=== PATIENT | female | born 1990 | race African-American/Black ===

== ENCOUNTER 2017-12-08 08:40 | Emergency (ER) | payer MEDICAID ==
[~2017-12-08] VITALS: Ht 170.2 cm; Wt 115.0 kg
[~2017-12-08 08:40] MED LIST: INSULIN
[2017-12-08] MEDS ORDERED: METOCLOPRAMIDE HCL 10MG/2ML VIAL IV STA (08:52)
[2017-12-08] MEDS ORDERED: ONDANSETRON HCL 4MG/2ML INJ IV STA (08:52)
[2017-12-08] MEDS ORDERED: SODIUM CHLORIDE 0.9% 1,000 ML IV ONE (08:52)
[2017-12-08] MEDS ORDERED: FAMOTIDINE 20MG/2ML VIAL IV STA (08:52)
[2017-12-08] MEDS ORDERED: MORPHINE SULFATE 4 MG/ML CPJ (NOT FOR IM USE) IV STA (08:52)
[2017-12-08 09:21] LABS: BASOPHILS % 0.3 % (0.0-2.0); EOSINOPHILS % 0.2 % (0.0-5.0); HEMATOCRIT. 45.2 % (36.0-48.0); HEMOGLOBIN. 15.1 g/dL (12.0-16.0); LYMPHOCYTES % 21.5 % (20.0-50.0); MEAN CORPUSCULAR HEMOGLOBIN 25.3 pg (28.0-32.0); MEAN CORPUSCULAR VOLUME 75.7 fL (81.0-99.0); MEAN PLATELET VOLUME 9.9 fl (7.4-10.4); MONOCYTES % 10.1 % (2.0-8.0); NEUTROPHILS % 67.9 % (40.0-76.0); PLATELET 330 x1000/uL (130-400); RED BLOOD CELL COUNT 5.98 mill/uL (4.2-5.4); RED CELL DISTRIBUTION WIDTH 14.5 % (11.6-14.6)
[2017-12-08 09:30] LABS: CHLORIDE 89 mEq/L (98-107)
[2017-12-08 09:36] LABS: INR 1.1; PROTHROMBIN TIME 10.7 sec (9.1-11.1)
[2017-12-08 09:55] LABS: ETHANOL BLOOD < 10 mg/dL
[2017-12-08 10:25] LABS: CLARITY URINE CLOUDY (CLEAR); COLOR URINE YELLOW (YELLOW); KETONES URINE 3+ (NEGATIVE); LEUKOCYTE ESTERASE URINE NEGATIVE (NEGATIVE); NITRITE URINE NEGATIVE (NEGATIVE); OCCULT BLOOD URINE TRACE (NEGATIVE); PROTEIN URINE 3+ (NEGATIVE); SPECIFIC GRAVITY URINE 1.037 (1.005-1.030); UROBILINOGEN URINE 0.2 E.U./dL (0.2-1.0)
[2017-12-08 11:03] LABS: *AMPHETAMINES SCREEN URINE NEGATIVE (NEGATIVE); *BARBITURATES SCREEN URINE NEGATIVE (NEGATIVE); *BENZODIAZEPINES SCREEN URINE NEGATIVE (NEGATIVE); *COCAINE SCREEN URINE NEGATIVE (NEGATIVE); METHADONE URINE SCREEN NEGATIVE (NEGATIVE); OPIATES URINE SCREEN NEGATIVE (NEGATIVE); PHENCYCLIDINE URINE SCREEN NEGATIVE (NEGATIVE)
[2017-12-08 11:25] LABS: CANNABINOID URINE SCREEN PRESUMTIVE POSITIVE (NEGATIVE)
[2017-12-08] MEDS ORDERED: IOHEXOL-300 100 ML BOTTLE ONE (11:40)
[2017-12-08 12:09] VITALS: BP 153/117
[2017-12-08] MEDS ORDERED: CLONIDINE 0.2MG TABLET PO ONE (12:15)
== END 2017-12-08 12:31 | disposition home or self-care (01) ==
LOC: ER 08:56
DX: K31.84 Gastroparesis (principal); J45.909 Unspecified asthma, uncomplicated; E11.9 Type 2 diabetes mellitus without complications; I10 Essential (primary) hypertension
CPT/HCPCS: 36415; 71045; 74177; 76705; 80053; 80305; 81003; 81025; 83690; 83880; 84484; 85025; 85610; 93005; 96361; 96374; 96375; 99285; G0482; J2270; J2405; J2765; J3490; J7030; Q9967

== ENCOUNTER 2017-12-26 17:04 | Inpatient (IN) | payer MEDICAID ==
[~2017-12-26] VITALS: Ht 167.6 cm; Wt 108.5 kg
[2017-12-26] MEDS ORDERED: ASPIRIN 81MG TABLET PO ONE (18:00)
[2017-12-26] MEDS ORDERED: NITROGLYCERIN 0.4MG TABLET SL SL PRN ×2 (18:00→20:30)
[2017-12-26 19:06] LABS: BASOPHILS % 0.7 % (0.0-2.0); EOSINOPHILS % 0.2 % (0.0-5.0); HEMATOCRIT. 41.6 % (36.0-48.0); MEAN CORPUSCULAR HEMOGLOBIN 25.6 pg (28.0-32.0); MEAN PLATELET VOLUME 9.7 fl (7.4-10.4); MONOCYTES % 10.4 % (2.0-8.0); NEUTROPHILS % 69.7 % (40.0-76.0); PLATELET 276 x1000/uL (130-400); RED BLOOD CELL COUNT 5.48 mill/uL (4.2-5.4); RED CELL DISTRIBUTION WIDTH 15.1 % (11.6-14.6)
[2017-12-26 19:14] LABS: CHLORIDE 94 mEq/L (98-107)
[2017-12-26 19:15] LABS: D-DIMER 1.1 mg/L FEU (<0.50); HCG SCREEN NEGATIVE; PARTIAL THROMBOPLASTIN TIME 25.5 sec (23.4-31.0); PROTHROMBIN TIME 10.2 sec (9.1-11.1)
[2017-12-26] MEDS ORDERED: GUAIFENESIN 200MG/10ML SUGAR FREE UDC PO PRN (20:30)
[2017-12-26] MEDS ORDERED: DOCUSATE SODIUM 100MG CAPSULE PO PRN (20:30)
[2017-12-26] MEDS ORDERED: ONDANSETRON HCL 4MG/2ML INJ IV PRN (20:30)
[2017-12-26] MEDS ORDERED: DEXTROSE 50% WATER 50ML SYRINGE IV PRN (20:30)
[2017-12-26] MEDS ORDERED: CLONIDINE 0.1MG TABLET PO PRN (20:30)
[2017-12-26] MEDS ORDERED: NA PHOS,M-B/NA PHOS,DI-BA ENEMA 118ML PR PRN (20:30)
[2017-12-26] MEDS ORDERED: MAGNESIUM/ALUMINUM HYDROXIDE/SIMETHICONE 30ML UDC PO PRN (20:30)
[2017-12-26] MEDS ORDERED: ZOLPIDEM TARTRATE 5MG TABLET PO PRN (20:30)
[2017-12-26] MEDS ORDERED: KETOROLAC 15MG/ML VIAL IV PRN (20:30)
[2017-12-26] MEDS ORDERED: ACETAMINOPHEN 325MG TABLET PO PRN (20:30)
[2017-12-26] MEDS ORDERED: IPRATROPIUM/ALBUTEROL 0.5-3(2.5)MG/3ML NEB INH PRN (20:30)
[2017-12-26] MEDS ORDERED: LORAZEPAM 0.5MG TABLET PO PRN (20:30)
[2017-12-26] MEDS ORDERED: IOHEXOL-350 100 ML BOTTLE ONE (21:36)
[2017-12-26] MEDS ORDERED: ENOXAPARIN 100MG/ML SYR SUBCUT ONE (21:45)
[2017-12-26] MEDS ORDERED: INSULIN GLARGINE UD 100 UNITS/ML SYR SUBCUT SCH (22:00)
[2017-12-26 23:00] VITALS: BP 150/92
[2017-12-26] MEDS: LISINOPRIL 20MG TABLET PO SCH (23:30)
[2017-12-26] MEDS: BLOOD SUGAR DIAGNOSTIC STRIP TEST SCH (23:33)
[2017-12-27 01:00] VITALS: BP 140/80
[2017-12-27] MEDS ORDERED: INSULIN GLARGINE UD 100 UNITS/ML SYR SUBCUT SCH (01:00)
[2017-12-27 02:14] LABS: CREATINE KINASE 34 IU/L (26-192); CREATINE KINASE MB FRACTION < 1.0 ng/mL (0.5-3.6)
[2017-12-27 02:22] VITALS: BP 150/92
[2017-12-27] MEDS ORDERED: INSU100I28 SQ (03:41)
[2017-12-27 04:00] VITALS: BP 106/74
[2017-12-27] MEDS: BLOOD SUGAR DIAGNOSTIC STRIP TEST SCH ×2 (05:50→12:13)
[2017-12-27] MEDS: INSULIN LISPRO 100 UNITS/ML SUBCUT SCH ×3 (06:15→12:23)
[2017-12-27 08:03] VITALS: BP 105/71
[2017-12-27] MEDS ORDERED: METOPROLOL TARTRATE 25MG TABLET PO SCH (09:00)
[2017-12-27] MEDS: LISINOPRIL 20MG TABLET PO SCH (09:00)
[2017-12-27] MEDS ORDERED: FAMOTIDINE 20MG TABLET PO SCH (09:00)
[2017-12-27] MEDS ORDERED: ASPIRIN 325MG EC TABLET PO SCH (09:00)
[2017-12-27 10:29] LABS: CREATINE KINASE 31 IU/L (26-192); CREATINE KINASE MB FRACTION < 1.0 ng/mL (0.5-3.6)
[2017-12-27 11:50] VITALS: BP 129/86
[2017-12-27 11:58] VITALS: BP 129/86
[2017-12-27 15:00] LABS: *AMPHETAMINES SCREEN URINE NEGATIVE (NEGATIVE); *BARBITURATES SCREEN URINE NEGATIVE (NEGATIVE); *BENZODIAZEPINES SCREEN URINE NEGATIVE (NEGATIVE); *COCAINE SCREEN URINE NEGATIVE (NEGATIVE); METHADONE URINE SCREEN NEGATIVE (NEGATIVE); OPIATES URINE SCREEN NEGATIVE (NEGATIVE); PHENCYCLIDINE URINE SCREEN NEGATIVE (NEGATIVE)
[2017-12-27 15:02] LABS: CANNABINOID URINE SCREEN PRESUMTIVE POSITIVE (NEGATIVE)
[2017-12-27] MEDS ORDERED: ATORVASTATIN CALCIUM 40MG TABLET PO SCH (21:00)
== END 2017-12-27 12:28 | disposition home or self-care (01) | DRG 203 ==
LOC: ER 17:04 → 5WST 21:29 → EDBEDREQ 21:34 → EDBEDREQTM 21:34 → ENRESERV 21:40
PROVIDERS: ADMIT Internal Medicine; ATTEND Internal Medicine
DX: R07.89 Other chest pain (principal); E44.0 Moderate protein-calorie malnutrition; E11.65 Type 2 diabetes mellitus with hyperglycemia; E66.01 Morbid (severe) obesity due to excess calories; E78.00 Pure hypercholesterolemia, unspecified; E87.1 Hypo-osmolality and hyponatremia; I10 Essential (primary) hypertension; J45.909 Unspecified asthma, uncomplicated; Z68.38 Body mass index [BMI] 38.0-38.9, adult; Z91.018 Allergy to other foods; Z79.4 Long term (current) use of insulin
CPT/HCPCS: 36415; 71045; 71275; 80061; 80305; 82550; 82553; 82962; 83036; 83880; 84484; 84703; 85379; 93005; 93970; 99285; J1815; Q9967

== ENCOUNTER 2018-01-10 08:51 | Emergency (ER) | payer MEDICAID ==
[~2018-01-10] VITALS: Ht 167.6 cm; Wt 100.0 kg
[2018-01-10] MEDS ORDERED: KETOROLAC 30MG/ML VIAL IV STA (09:56)
[2018-01-10] MEDS ORDERED: SODIUM CHLORIDE 0.9% 1,000 ML IV ONE (09:56)
[2018-01-10] MEDS ORDERED: FAMOTIDINE 20MG/2ML VIAL IV STA (09:56)
[2018-01-10] MEDS ORDERED: ONDANSETRON HCL 4MG/2ML INJ IV STA (09:56)
[2018-01-10] MEDS ORDERED: INSULIN REGULAR (HUMULIN R) 300UNITS/3ML IV ONE (10:00)
[2018-01-10 10:12] LABS: BASOPHILS % 1.3 % (0.0-2.0); EOSINOPHILS % 0.3 % (0.0-5.0); HEMATOCRIT. 45.2 % (36.0-48.0); HEMOGLOBIN. 15.1 g/dL (12.0-16.0); LYMPHOCYTES % 15.3 % (20.0-50.0); MEAN CORPUSCULAR HEMOGLOBIN 25.6 pg (28.0-32.0); MEAN CORPUSCULAR VOLUME 76.7 fL (81.0-99.0); MEAN PLATELET VOLUME 9.8 fl (7.4-10.4); MONOCYTES % 7.7 % (2.0-8.0); NEUTROPHILS % 75.4 % (40.0-76.0); PLATELET 258 x1000/uL (130-400); RED CELL DISTRIBUTION WIDTH 15.1 % (11.6-14.6)
[2018-01-10 10:18] LABS: CLARITY URINE CLOUDY (CLEAR); COLOR URINE YELLOW (YELLOW); KETONES URINE 3+ (NEGATIVE); LEUKOCYTE ESTERASE URINE NEGATIVE (NEGATIVE); NITRITE URINE NEGATIVE (NEGATIVE); OCCULT BLOOD URINE 2+ (NEGATIVE); PROTEIN URINE 3+ (NEGATIVE); SPECIFIC GRAVITY URINE 1.021 (1.005-1.030); UROBILINOGEN URINE 0.2 E.U./dL (0.2-1.0)
[2018-01-10 10:20] LABS: PROTHROMBIN TIME 10.5 sec (9.1-11.1)
[2018-01-10 10:24] LABS: ETHANOL BLOOD < 10 mg/dL
[2018-01-10 10:33] LABS: *AMPHETAMINES SCREEN URINE NEGATIVE (NEGATIVE)
[2018-01-10 10:34] LABS: *BARBITURATES SCREEN URINE NEGATIVE (NEGATIVE); *BENZODIAZEPINES SCREEN URINE NEGATIVE (NEGATIVE); *COCAINE SCREEN URINE NEGATIVE (NEGATIVE); METHADONE URINE SCREEN NEGATIVE (NEGATIVE); OPIATES URINE SCREEN NEGATIVE (NEGATIVE)
[2018-01-10 10:35] LABS: PHENCYCLIDINE URINE SCREEN NEGATIVE (NEGATIVE)
[2018-01-10 10:36] LABS: CANNABINOID URINE SCREEN PRESUMTIVE POSITIVE (NEGATIVE)
[2018-01-10 10:39] LABS: CHLORIDE 94 mEq/L (98-107)
[2018-01-10] MEDS ORDERED: METOPROLOL TARTRATE 25MG TABLET PO ONE (11:00)
[2018-01-10 11:05] LABS: HCG SCREEN NEGATIVE
[2018-01-10 13:35] VITALS: BP 142/89
== END 2018-01-10 13:37 | disposition home or self-care (01) ==
LOC: ER 08:51
DX: R07.9 Chest pain, unspecified (principal); R10.13 Epigastric pain; E11.65 Type 2 diabetes mellitus with hyperglycemia; F12.10 Cannabis abuse, uncomplicated; R11.2 Nausea with vomiting, unspecified; I10 Essential (primary) hypertension; J45.909 Unspecified asthma, uncomplicated; E66.01 Morbid (severe) obesity due to excess calories; Z68.35 Body mass index [BMI] 35.0-35.9, adult; Z79.4 Long term (current) use of insulin; Z91.018 Allergy to other foods
CPT/HCPCS: 36415; 71045; 80053; 80305; 81003; 82962; 83690; 83880; 84484; 84703; 85025; 85610; 93005; 96361; 96374; 96375; 99284; G0482; J1815; J1885; J2405; J3490; J7030

== ENCOUNTER 2018-01-13 16:13 | Emergency (ER) | payer MEDICAID ==
[~2018-01-13] VITALS: Ht 162.6 cm; Wt 122.0 kg
[2018-01-13 16:20] VITALS: BP 130/90
== END 2018-01-13 20:47 | disposition left against medical advice (07) ==
LOC: ER 16:19
DX: Z53.21 Procedure and treatment not carried out due to patient leaving prior to being seen by health care provider (principal)

== ENCOUNTER 2018-02-05 12:44 | Emergency (ER) | payer MEDICAID ==
[~2018-02-05] VITALS: Ht 167.6 cm; Wt 118.0 kg
[2018-02-05] MEDS ORDERED: LORAZEPAM 1MG TABLET PO ONE (14:30)
[2018-02-05] MEDS ORDERED: OLANZAPINE 5MG TABLET ODT PO ONE (14:30)
[2018-02-05 15:52] LABS: BASOPHILS % 1.1 % (0.0-2.0); EOSINOPHILS % 0.1 % (0.0-5.0); HEMATOCRIT. 41.4 % (36.0-48.0); HEMOGLOBIN. 13.4 g/dL (12.0-16.0); MEAN CORPUSCULAR HEMOGLOBIN 25.2 pg (28.0-32.0); MEAN CORPUSCULAR VOLUME 77.5 fL (81.0-99.0); MEAN PLATELET VOLUME 9.7 fl (7.4-10.4); NEUTROPHILS % 78.8 % (40.0-76.0); PLATELET 227 x1000/uL (130-400); RED BLOOD CELL COUNT 5.33 mill/uL (4.2-5.4); RED CELL DISTRIBUTION WIDTH 14.6 % (11.6-14.6)
[2018-02-05 15:57] LABS: CHLORIDE 100 mEq/L (98-107)
[2018-02-05 16:02] LABS: ETHANOL BLOOD < 10 mg/dL
[2018-02-05 16:09] LABS: HCG SCREEN NEGATIVE
[2018-02-05 17:17] VITALS: BP 140/88
[2018-02-05 17:32] LABS: *AMPHETAMINES SCREEN URINE NEGATIVE (NEGATIVE); *BARBITURATES SCREEN URINE NEGATIVE (NEGATIVE); *BENZODIAZEPINES SCREEN URINE NEGATIVE (NEGATIVE); *COCAINE SCREEN URINE NEGATIVE (NEGATIVE); METHADONE URINE SCREEN NEGATIVE (NEGATIVE); OPIATES URINE SCREEN NEGATIVE (NEGATIVE)
[2018-02-05 17:33] LABS: PHENCYCLIDINE URINE SCREEN NEGATIVE (NEGATIVE)
[2018-02-05 17:34] LABS: CANNABINOID URINE SCREEN PRESUMTIVE POSITIVE (NEGATIVE)
[2018-02-05] MEDS ORDERED: METFORMIN HCL 500MG TABLET PO STA (18:51)
[2018-02-05] MEDS ORDERED: METFORMIN HCL 500MG TABLET PO SCH (19:15)
== END 2018-02-05 19:33 | disposition left against medical advice (07) ==
LOC: ER 12:44
DX: R45.851 Suicidal ideations (principal); E11.9 Type 2 diabetes mellitus without complications; F12.10 Cannabis abuse, uncomplicated; F31.9 Bipolar disorder, unspecified; F20.9 Schizophrenia, unspecified; F41.9 Anxiety disorder, unspecified
CPT/HCPCS: 36415; 80048; 80305; 80307; 80329; 81025; 84703; 85025; 99284; G0482; 99283

== ENCOUNTER 2018-02-09 02:23 | Emergency (ER) | payer MEDICAID ==
[~2018-02-09] VITALS: Ht 170.2 cm; Wt 110.0 kg
[2018-02-09] MEDS ORDERED: ACETAMINOPHEN 325MG TABLET PO ONE (06:15)
[2018-02-09] MEDS ORDERED: ONDANSETRON 4MG ODT PO ONE (06:15)
[2018-02-09 06:32] VITALS: BP 148/88
== END 2018-02-09 06:34 | disposition home or self-care (01) ==
LOC: ER 02:23
DX: N39.0 Urinary tract infection, site not specified (principal); E11.9 Type 2 diabetes mellitus without complications; Z91.018 Allergy to other foods
CPT/HCPCS: 99283; Q0162

== ENCOUNTER 2018-03-25 20:39 | Emergency (ER) | payer MEDICAID ==
[~2018-03-25] VITALS: Ht 170.2 cm; Wt 110.0 kg
[2018-03-26] MEDS ORDERED: IBUPROFEN 600MG TABLET PO ONE (01:15)
[2018-03-26] MEDS ORDERED: INSULIN GLARGINE UD 100 UNITS/ML SYR SUBCUT ONE (01:15)
[2018-03-26 01:23] LABS: BASOPHILS % 0.6 % (0.0-2.0); EOSINOPHILS % 0.4 % (0.0-5.0); HEMATOCRIT. 34.9 % (36.0-48.0); HEMOGLOBIN. 11.2 g/dL (12.0-16.0); LYMPHOCYTES % 18.5 % (20.0-50.0); MEAN CORPUSCULAR HEMOGLOBIN 25.2 pg (28.0-32.0); MEAN CORPUSCULAR VOLUME 78.2 fL (81.0-99.0); MEAN PLATELET VOLUME 10.2 fl (7.4-10.4); MONOCYTES % 12.5 % (2.0-8.0); PLATELET 244 x1000/uL (130-400); RED BLOOD CELL COUNT 4.46 mill/uL (4.2-5.4)
[2018-03-26 01:25] LABS: CHLORIDE 94 mEq/L (98-107)
[2018-03-26] MEDS ORDERED: SULFAMETHOXAZOLE/TRIMETHOPRIM 800/160MG TABLET PO ONE (01:30)
[2018-03-26] MEDS ORDERED: CEPHALEXIN 250MG CAPSULE PO ONE (01:30)
[2018-03-26 02:27] VITALS: BP 152/96
== END 2018-03-26 02:28 | disposition home or self-care (01) ==
LOC: ER 20:39
DX: L03.116 Cellulitis of left lower limb (principal); E11.9 Type 2 diabetes mellitus without complications; Z79.4 Long term (current) use of insulin
CPT/HCPCS: 36415; 80048; 81025; 82962; 83605; 85025; 96372; 99284; J1815; Z7610

== ENCOUNTER 2018-04-02 16:24 | Emergency (ER) | payer MEDICAID | END 2018-04-02 22:00 | disposition left against medical advice (07) | LOC: ER 16:29 | DX: Z53.21 Procedure and treatment not carried out due to patient leaving prior to being seen by health care provider (principal); Z91.018 Allergy to other foods ==

== ENCOUNTER 2018-04-24 22:10 | Emergency (ER) | payer MEDICAID ==
[~2018-04-24] VITALS: Ht 167.6 cm; Wt 88.0 kg
[2018-04-25] MEDS ORDERED: MAGNESIUM/ALUMINUM HYDROXIDE/SIMETHICONE 30ML UDC PO STA (00:37)
[2018-04-25] MEDS ORDERED: SODIUM CHLORIDE 0.9% 1,000 ML IV ONE (00:37)
[2018-04-25] MEDS ORDERED: ONDANSETRON HCL 4MG/2ML INJ IV ONE (00:45)
[2018-04-25] MEDS ORDERED: KETOROLAC 15MG/ML VIAL IV ONE (01:00)
[2018-04-25 01:13] LABS: EOSINOPHILS % 0.1 % (0.0-5.0); HEMATOCRIT. 37.2 % (36.0-48.0); HEMOGLOBIN. 12.3 g/dL (12.0-16.0); LYMPHOCYTES % 9.8 % (20.0-50.0); MEAN CORPUSCULAR HEMOGLOBIN 25.1 pg (28.0-32.0); MEAN CORPUSCULAR VOLUME 75.8 fL (81.0-99.0); MEAN PLATELET VOLUME 8.7 fl (7.4-10.4); MONOCYTES % 2.3 % (2.0-8.0); NEUTROPHILS % 86.8 % (40.0-76.0); PLATELET 386 x1000/uL (130-400); RED BLOOD CELL COUNT 4.91 mill/uL (4.2-5.4); RED CELL DISTRIBUTION WIDTH 14.5 % (11.6-14.6)
[2018-04-25 01:15] LABS: CHLORIDE 98 mEq/L (98-107)
[2018-04-25 01:19] LABS: INR 1.1; PROTHROMBIN TIME 10.7 sec (9.1-11.1)
[2018-04-25 02:24] LABS: CLARITY URINE CLEAR (CLEAR); COLOR URINE YELLOW (YELLOW); KETONES URINE 1+ (NEGATIVE); LEUKOCYTE ESTERASE URINE NEGATIVE (NEGATIVE); NITRITE URINE NEGATIVE (NEGATIVE); OCCULT BLOOD URINE NEGATIVE (NEGATIVE); PH URINE 8.5 (4.5-8.0); PROTEIN URINE 2+ (NEGATIVE); SPECIFIC GRAVITY URINE 1.024 (1.005-1.030); UROBILINOGEN URINE 0.2 E.U./dL (0.2-1.0)
[2018-04-25 03:58] VITALS: BP 158/89
== END 2018-04-25 04:01 | disposition home or self-care (01) ==
LOC: ER 22:10
DX: R10.9 Unspecified abdominal pain (principal); E11.9 Type 2 diabetes mellitus without complications; Z91.018 Allergy to other foods
CPT/HCPCS: 36415; 80053; 81003; 83690; 85025; 85610; 96374; 96375; 99283; J1885; J2405; J7030

== ENCOUNTER 2018-04-25 04:12 | Emergency (ER) | payer MEDICAID, OTHER ==
[~2018-04-25] VITALS: Ht 167.6 cm; Wt 104.0 kg
[2018-04-25] MEDS ORDERED: FAMOTIDINE 20MG/2ML VIAL IV STA (09:46)
[2018-04-25] MEDS ORDERED: ONDANSETRON HCL 4MG/2ML INJ IV STA (09:46)
[2018-04-25] MEDS ORDERED: SODIUM CHLORIDE 0.9% 1,000 ML IV ONE ×2 (09:46→12:15)
[2018-04-25 10:28] LABS: CLARITY URINE CLEAR (CLEAR); COLOR URINE YELLOW (YELLOW); KETONES URINE 1+ (NEGATIVE); LEUKOCYTE ESTERASE URINE NEGATIVE (NEGATIVE); NITRITE URINE NEGATIVE (NEGATIVE); OCCULT BLOOD URINE NEGATIVE (NEGATIVE); PH URINE 6.5 (4.5-8.0); PROTEIN URINE 2+ (NEGATIVE); SPECIFIC GRAVITY URINE 1.033 (1.005-1.030); UROBILINOGEN URINE 0.2 E.U./dL (0.2-1.0)
[2018-04-25 10:32] LABS: BASOPHILS % 0.5 % (0.0-2.0); HEMATOCRIT. 36.8 % (36.0-48.0); HEMOGLOBIN. 11.8 g/dL (12.0-16.0); MEAN CORPUSCULAR HEMOGLOBIN 24.5 pg (28.0-32.0); MEAN CORPUSCULAR VOLUME 76.3 fL (81.0-99.0); MEAN PLATELET VOLUME 8.7 fl (7.4-10.4); MONOCYTES % 6.9 % (2.0-8.0); NEUTROPHILS % 78.6 % (40.0-76.0); PLATELET 378 x1000/uL (130-400); RED BLOOD CELL COUNT 4.83 mill/uL (4.2-5.4); RED CELL DISTRIBUTION WIDTH 14.9 % (11.6-14.6)
[2018-04-25 10:39] LABS: CHLORIDE 97 mEq/L (98-107)
[2018-04-25 10:39] LABS: *BARBITURATES SCREEN URINE NEGATIVE (NEGATIVE); *BENZODIAZEPINES SCREEN URINE NEGATIVE (NEGATIVE); *COCAINE SCREEN URINE NEGATIVE (NEGATIVE)
[2018-04-25 10:40] LABS: INR 1.1; PROTHROMBIN TIME 10.7 sec (9.1-11.1)
[2018-04-25 10:40] LABS: *AMPHETAMINES SCREEN URINE NEGATIVE (NEGATIVE); METHADONE URINE SCREEN NEGATIVE (NEGATIVE); PHENCYCLIDINE URINE SCREEN NEGATIVE (NEGATIVE)
[2018-04-25 10:43] LABS: ETHANOL BLOOD < 10 mg/dL
[2018-04-25 10:49] LABS: CANNABINOID URINE SCREEN PRESUMTIVE POSITIVE (NEGATIVE); OPIATES URINE SCREEN PRESUMTIVE POSITIVE (NEGATIVE)
[2018-04-25 10:49] LABS: HCG SCREEN NEGATIVE
[2018-04-25] MEDS ORDERED: ONDANSETRON HCL 4MG/2ML INJ IV ONE (12:15)
[2018-04-25 14:16] VITALS: BP 131/78
== END 2018-04-25 14:17 | disposition home or self-care (01) ==
LOC: ER 04:12
DX: R10.13 Epigastric pain (principal); E11.9 Type 2 diabetes mellitus without complications; I10 Essential (primary) hypertension; R11.2 Nausea with vomiting, unspecified; J45.909 Unspecified asthma, uncomplicated; Z98.890 Other specified postprocedural states; Z91.018 Allergy to other foods
CPT/HCPCS: 36415; 74176; 80053; 80305; 80320; 81003; 81025; 83690; 84703; 85025; 85610; 96361; 96374; 96375; 96376; 99284; J2405; J3490; J7030; Z7610; G0480

== ENCOUNTER 2018-05-02 20:00 | Emergency (ER) | payer OTHER ==
[~2018-05-02] VITALS: Ht 167.6 cm; Wt 78.0 kg
[2018-05-02] MEDS ORDERED: ONDANSETRON HCL 4MG/2ML INJ IV STA (21:34)
[2018-05-02] MEDS ORDERED: SODIUM CHLORIDE 0.9% 1,000 ML IV ONE (21:34)
[2018-05-02 22:49] LABS: CLARITY URINE CLOUDY (CLEAR); COLOR URINE YELLOW (YELLOW); KETONES URINE 1+ (NEGATIVE); LEUKOCYTE ESTERASE URINE NEGATIVE (NEGATIVE); NITRITE URINE NEGATIVE (NEGATIVE); OCCULT BLOOD URINE 1+ (NEGATIVE); PROTEIN URINE 2+ (NEGATIVE); SPECIFIC GRAVITY URINE 1.034 (1.005-1.030); UROBILINOGEN URINE 0.2 E.U./dL (0.2-1.0)
[2018-05-02] MEDS ORDERED: LORAZEPAM 2MG/ML CPJ IV ONE (23:00)
[2018-05-02] MEDS ORDERED: CAPSAICIN 0.075% CREAM 60GM TOP PRN (23:00)
[2018-05-02 23:04] LABS: *AMPHETAMINES SCREEN URINE NEGATIVE (NEGATIVE); *BARBITURATES SCREEN URINE NEGATIVE (NEGATIVE); *BENZODIAZEPINES SCREEN URINE NEGATIVE (NEGATIVE); *COCAINE SCREEN URINE NEGATIVE (NEGATIVE)
[2018-05-02 23:06] LABS: METHADONE URINE SCREEN NEGATIVE (NEGATIVE); OPIATES URINE SCREEN NEGATIVE (NEGATIVE); PHENCYCLIDINE URINE SCREEN NEGATIVE (NEGATIVE)
[2018-05-02 23:09] LABS: CANNABINOID URINE SCREEN PRESUMTIVE POSITIVE (NEGATIVE)
[2018-05-03 00:18] LABS: BASOPHILS % 1.4 % (0.0-2.0); EOSINOPHILS % 0.1 % (0.0-5.0); HEMATOCRIT. 38.1 % (36.0-48.0); HEMOGLOBIN. 12.5 g/dL (12.0-16.0); LYMPHOCYTES % 12.4 % (20.0-50.0); MEAN CORPUSCULAR HEMOGLOBIN 24.8 pg (28.0-32.0); MEAN CORPUSCULAR VOLUME 75.5 fL (81.0-99.0); MEAN PLATELET VOLUME 9.9 fl (7.4-10.4); MONOCYTES % 4.6 % (2.0-8.0); NEUTROPHILS % 81.5 % (40.0-76.0); PLATELET 273 x1000/uL (130-400); RED BLOOD CELL COUNT 5.05 mill/uL (4.2-5.4)
[2018-05-03 00:21] LABS: CHLORIDE 100 mEq/L (98-107)
[2018-05-03 00:22] LABS: HCG SCREEN NEGATIVE
[2018-05-03 00:25] LABS: ETHANOL BLOOD < 10 mg/dL
[2018-05-03] MEDS ORDERED: AMLODIPINE 5MG TABLET PO ONE ×2 (00:45→22:30)
[2018-05-03] MEDS ORDERED: INSULIN REGULAR (HUMULIN R) 300UNITS/3ML SUBCUT ONE ×2 (02:00→10:00)
[2018-05-03] MEDS ORDERED: ONDANSETRON HCL 4MG/2ML INJ IV ONE (12:30)
[2018-05-03] MEDS ORDERED: IBUPROFEN 600MG TABLET PO NR (16:33)
[2018-05-04] MEDS ORDERED: ACETAMINOPHEN 500MG TABLET PO ONE (04:00)
[2018-05-04] MEDS ORDERED: SODIUM CHLORIDE 0.9% 1,000 ML IV NR (04:12)
[2018-05-04] MEDS ORDERED: INSULIN REGULAR (HUMULIN R) 300UNITS/3ML IV NR (04:15)
[2018-05-04] MEDS ORDERED: ONDANSETRON HCL 4MG/2ML INJ IV STA (04:26)
[2018-05-04] MEDS ORDERED: LORAZEPAM 2MG/ML CPJ IV ONE (04:30)
[2018-05-04] MEDS ORDERED: INSULIN REGULAR (HUMULIN R) 300UNITS/3ML SUBCUT ONE (04:45)
[2018-05-04 04:53] LABS: BASOPHILS % 1.5 % (0.0-2.0); EOSINOPHILS % 0.8 % (0.0-5.0); HEMATOCRIT. 38.8 % (36.0-48.0); HEMOGLOBIN. 12.5 g/dL (12.0-16.0); LYMPHOCYTES % 25.2 % (20.0-50.0); MEAN CORPUSCULAR HEMOGLOBIN 24.6 pg (28.0-32.0); MEAN CORPUSCULAR VOLUME 76.4 fL (81.0-99.0); MEAN PLATELET VOLUME 9.4 fl (7.4-10.4); NEUTROPHILS % 62.5 % (40.0-76.0); PLATELET 264 x1000/uL (130-400); RED BLOOD CELL COUNT 5.08 mill/uL (4.2-5.4); RED CELL DISTRIBUTION WIDTH 15.4 % (11.6-14.6)
[2018-05-04 04:55] LABS: CHLORIDE 99 mEq/L (98-107)
[2018-05-04] MEDS ORDERED: INSULIN LISPRO 100 UNITS/ML SUBCUT ONE (17:00)
[2018-05-04] MEDS ORDERED: METFORMIN HCL 500MG TABLET PO ONE (17:00)
[2018-05-04 19:11] VITALS: BP 112/59
== END 2018-05-04 19:17 | disposition home or self-care (01) ==
LOC: ER 20:00
DX: R45.851 Suicidal ideations (principal); R10.13 Epigastric pain; I10 Essential (primary) hypertension; E11.65 Type 2 diabetes mellitus with hyperglycemia; J45.909 Unspecified asthma, uncomplicated; Z91.018 Allergy to other foods
CPT/HCPCS: 36415; 74021; 80053; 80305; 80307; 80320; 80329; 81003; 81025; 82962; 84703; 85025; 96361; 96372; 96374; 96375; 99284; J1815; J2060; J2405; J7030; Z7610; G0480

== ENCOUNTER 2018-06-03 13:34 | Emergency (ER) | payer OTHER ==
[~2018-06-03] VITALS: Ht 175.3 cm; Wt 107.0 kg
[2018-06-03] MEDS ORDERED: MORPHINE SULFATE 4 MG/ML CPJ (NOT FOR IM USE) IV STA (14:02)
[2018-06-03] MEDS ORDERED: FAMOTIDINE 20MG/2ML VIAL IV STA (14:02)
[2018-06-03] MEDS ORDERED: ONDANSETRON HCL 4MG/2ML INJ IV STA (14:02)
[2018-06-03] MEDS ORDERED: SODIUM CHLORIDE 0.9% 1,000 ML IV ONE ×2 (14:02→18:18)
[2018-06-03] MEDS ORDERED: INSULIN REGULAR (HUMULIN R) 300UNITS/3ML IV ONE (14:15)
[2018-06-03 14:24] LABS: BASOPHILS % 1.3 % (0.0-2.0); EOSINOPHILS % 0.1 % (0.0-5.0); HEMATOCRIT. 37.1 % (36.0-48.0); HEMOGLOBIN. 11.9 g/dL (12.0-16.0); LYMPHOCYTES % 9.9 % (20.0-50.0); MEAN CORPUSCULAR HEMOGLOBIN 24.1 pg (28.0-32.0); MEAN CORPUSCULAR VOLUME 75.3 fL (81.0-99.0); MEAN PLATELET VOLUME 9.5 fl (7.4-10.4); MONOCYTES % 3.6 % (2.0-8.0); NEUTROPHILS % 85.1 % (40.0-76.0); PLATELET 306 x1000/uL (130-400); RED BLOOD CELL COUNT 4.94 mill/uL (4.2-5.4); RED CELL DISTRIBUTION WIDTH 15.6 % (11.6-14.6)
[2018-06-03 14:29] LABS: CHLORIDE 103 mEq/L (98-107); PROTHROMBIN TIME 9.9 sec (9.6-11.0)
[2018-06-03 14:36] LABS: ETHANOL BLOOD < 10 mg/dL; HCG SCREEN NEGATIVE
[2018-06-03 15:13] LABS: CLARITY URINE CLOUDY (CLEAR); COLOR URINE RED (YELLOW); KETONES URINE 1+ (NEGATIVE); LEUKOCYTE ESTERASE URINE NEGATIVE (NEGATIVE); NITRITE URINE NEGATIVE (NEGATIVE); OCCULT BLOOD URINE 3+ (NEGATIVE); PROTEIN URINE 2+ (NEGATIVE); SPECIFIC GRAVITY URINE 1.029 (1.005-1.030); UROBILINOGEN URINE 0.2 E.U./dL (0.2-1.0)
[2018-06-03 15:36] LABS: *AMPHETAMINES SCREEN URINE NEGATIVE (NEGATIVE); *BARBITURATES SCREEN URINE NEGATIVE (NEGATIVE); *BENZODIAZEPINES SCREEN URINE NEGATIVE (NEGATIVE); *COCAINE SCREEN URINE NEGATIVE (NEGATIVE); METHADONE URINE SCREEN NEGATIVE (NEGATIVE); OPIATES URINE SCREEN NEGATIVE (NEGATIVE); PHENCYCLIDINE URINE SCREEN NEGATIVE (NEGATIVE)
[2018-06-03 15:57] LABS: CANNABINOID URINE SCREEN PRESUMTIVE POSITIVE (NEGATIVE)
[2018-06-03] MEDS ORDERED: LORAZEPAM 2MG/ML CPJ IV ONE (18:30)
[2018-06-03] MEDS ORDERED: ONDANSETRON HCL 4MG/2ML INJ IV ONE (18:30)
[2018-06-03 20:32] VITALS: BP 153/69
== END 2018-06-03 20:33 | disposition home or self-care (01) ==
LOC: ER 13:34
DX: E86.0 Dehydration (principal); I10 Essential (primary) hypertension; E11.9 Type 2 diabetes mellitus without complications; R10.13 Epigastric pain; R11.2 Nausea with vomiting, unspecified; J45.909 Unspecified asthma, uncomplicated; Z91.018 Allergy to other foods
CPT/HCPCS: 36415; 80053; 80305; 80320; 81003; 81025; 82962; 83690; 84703; 85025; 85610; 96361; 96374; 96375; 96376; 99284; J1815; J2060; J2270; J2405; J3490; J7030; Z7610; G0480

== ENCOUNTER 2018-11-04 19:59 | Inpatient (IN) | payer OTHER ==
[~2018-11-04] VITALS: Ht 162.6 cm; Wt 101.6 kg
[2018-11-04] MEDS ORDERED: SODIUM CHLORIDE 0.9% 1,000 ML IV ONE (21:15)
[2018-11-04] MEDS ORDERED: CLONIDINE 0.2MG TABLET PO ONE (21:15)
[2018-11-04] MEDS ORDERED: ONDANSETRON HCL 4MG/2ML INJ IV ONE (21:15)
[2018-11-04] MEDS ORDERED: KETOROLAC 30MG/ML VIAL IV STA (21:15)
[2018-11-04 21:46] LABS: EOSINOPHILS % 0.1 % (0.0-5.0); HEMATOCRIT. 39.5 % (36.0-48.0); HEMOGLOBIN. 12.9 g/dL (12.0-16.0); LYMPHOCYTES % 14.8 % (20.0-50.0); MEAN CORPUSCULAR HEMOGLOBIN 24.3 pg (28.0-32.0); MEAN CORPUSCULAR VOLUME 74.4 fL (81.0-99.0); MEAN PLATELET VOLUME 9.6 fl (7.4-10.4); MONOCYTES % 6.7 % (2.0-8.0); NEUTROPHILS % 77.4 % (40.0-76.0); PLATELET 258 x1000/uL (130-400); RED CELL DISTRIBUTION WIDTH 15.5 % (11.6-14.6)
[2018-11-04 21:50] LABS: CHLORIDE 100 mEq/L (98-107)
[2018-11-04 22:06] LABS: CLARITY URINE CLOUDY (CLEAR); COLOR URINE YELLOW (YELLOW); KETONES URINE 2+ (NEGATIVE); LEUKOCYTE ESTERASE URINE 1+ (NEGATIVE); NITRITE URINE NEGATIVE (NEGATIVE); OCCULT BLOOD URINE TRACE (NEGATIVE); PROTEIN URINE 2+ (NEGATIVE); SPECIFIC GRAVITY URINE 1.022 (1.005-1.030)
[2018-11-04] MEDS ORDERED: MAGNESIUM/ALUMINUM HYDROXIDE/SIMETHICONE 30ML UDC PO ONE (22:30)
[2018-11-04] MEDS ORDERED: VISCOUS LIDOCAINE 2% 15 ML UDC PO ONE (22:30)
[2018-11-04 22:40] LABS: HCG SCREEN NEGATIVE
[2018-11-04] MEDS ORDERED: HYDRALAZINE 20MG/ML VIAL IV ONE (23:30)
[2018-11-05] MEDS ORDERED: MORPHINE SULFATE 4 MG/ML CPJ (NOT FOR IM USE) IV PRN ×2 (01:00→04:30)
[2018-11-05 08:00] VITALS: BP 170/108
[2018-11-05] MEDS ORDERED: CLONIDINE 0.2MG TABLET PO SCH (08:00)
[2018-11-05] MEDS ORDERED: ONDANSETRON HCL 4MG/2ML INJ IV PRN (08:30)
[2018-11-05] MEDS ORDERED: DEXTROSE 50% WATER 50ML SYRINGE IV PRN (08:30)
[2018-11-05] MEDS ORDERED: ACETAMINOPHEN 325MG TABLET PO PRN (08:30)
[2018-11-05 08:35] VITALS: BP 170/108
[2018-11-05] MEDS ORDERED: MORPHINE SULFATE 2 MG/ML CPJ (NOT FOR IM USE) IV PRN (09:30)
[2018-11-05] MEDS ORDERED: AMLODIPINE 5MG TABLET PO SCH (10:00)
[2018-11-05] MEDS ORDERED: HYDR12.529 MT (11:26)
[2018-11-05] MEDS: CLONIDINE 0.2MG TABLET PO SCH ×2 (11:56→16:00)
[2018-11-05 12:00] VITALS: BP 143/86
[2018-11-05] MEDS ORDERED: METOCLOPRAMIDE HCL 10MG/2ML VIAL IV SCH (12:00)
[2018-11-05] MEDS ORDERED: SORBITOL 70% SOLN 30ML PO NR (12:15)
[2018-11-05] MEDS ORDERED: BLOOD SUGAR DIAGNOSTIC STRIP TEST SCH (12:20)
[2018-11-05] MEDS ORDERED: INSULIN LISPRO 100 UNITS/ML SUBCUT SCH (12:50)
[2018-11-05 14:32] LABS: OPIATES URINE SCREEN NEGATIVE (NEGATIVE)
[2018-11-05 14:33] LABS: *AMPHETAMINES SCREEN URINE NEGATIVE (NEGATIVE); *BARBITURATES SCREEN URINE NEGATIVE (NEGATIVE); *BENZODIAZEPINES SCREEN URINE NEGATIVE (NEGATIVE); *COCAINE SCREEN URINE NEGATIVE (NEGATIVE); PHENCYCLIDINE URINE SCREEN NEGATIVE (NEGATIVE)
[2018-11-05 14:34] LABS: METHADONE URINE SCREEN NEGATIVE (NEGATIVE)
[2018-11-05 14:44] LABS: CANNABINOID URINE SCREEN PRESUMTIVE POSITIVE (NEGATIVE)
[2018-11-05] MEDS ORDERED: INSULIN GLARGINE UD 100 UNITS/ML SYR SUBCUT NR (16:00)
[2018-11-05 17:03] VITALS: BP 108/56
== END 2018-11-05 17:40 | disposition home or self-care (01) | DRG 48 ==
LOC: ER 19:59 → 6WST 23:53 → ENRESERV 11-05 07:06
PROVIDERS: ADMIT Internal Medicine; ATTEND Internal Medicine
DX: E10.43 Type 1 diabetes mellitus with diabetic autonomic (poly)neuropathy (principal); K31.84 Gastroparesis; E66.9 Obesity, unspecified; I10 Essential (primary) hypertension; I16.0 Hypertensive urgency; J45.909 Unspecified asthma, uncomplicated; Z79.4 Long term (current) use of insulin; Z68.38 Body mass index [BMI] 38.0-38.9, adult; Z79.899 Other long term (current) drug therapy; Z71.3 Dietary counseling and surveillance
CPT/HCPCS: 36415; 74176; 80305; 81003; 82962; 83036; 84145; 84484; 84703; 93005; 99291; J0360; J1815; J1885; J2270; J2405; J2765; J7030

== ENCOUNTER 2019-01-18 05:37 | Emergency (ER) | payer OTHER ==
[~2019-01-18] VITALS: Ht 165.1 cm; Wt 100.0 kg
[~2019-01-18 05:37] MED LIST changes: +HYDR12.529 MT; -INSULIN
[2019-01-18] MEDS ORDERED: SODIUM CHLORIDE 0.9% 1,000 ML IV ONE (07:12)
[2019-01-18] MEDS ORDERED: ONDANSETRON HCL 4MG/2ML INJ IV STA (07:12)
[2019-01-18] MEDS ORDERED: MORPHINE SULFATE 4 MG/ML CPJ (NOT FOR IM USE) IV STA (07:12)
[2019-01-18] MEDS ORDERED: MAGNESIUM/ALUMINUM HYDROXIDE/SIMETHICONE 30ML UDC PO STA (08:03)
[2019-01-18] MEDS ORDERED: VISCOUS LIDOCAINE 2% 15 ML UDC PO STA (08:03)
[2019-01-18] MEDS ORDERED: FAMOTIDINE 20MG/2ML VIAL IV STA (08:03)
[2019-01-18 08:36] LABS: BASOPHILS % 1.2 % (0.0-2.0); EOSINOPHILS % 0.2 % (0.0-5.0); HEMATOCRIT. 42.3 % (36.0-48.0); HEMOGLOBIN. 13.9 g/dL (12.0-16.0); LYMPHOCYTES % 18.1 % (20.0-50.0); MEAN CORPUSCULAR HEMOGLOBIN 24.4 pg (28.0-32.0); MEAN CORPUSCULAR VOLUME 74.5 fL (81.0-99.0); MEAN PLATELET VOLUME 9.9 fl (7.4-10.4); MONOCYTES % 7.3 % (2.0-8.0); NEUTROPHILS % 73.2 % (40.0-76.0); PLATELET 292 x1000/uL (130-400); RED BLOOD CELL COUNT 5.68 mill/uL (4.2-5.4); RED CELL DISTRIBUTION WIDTH 14.4 % (11.6-14.6)
[2019-01-18 08:39] LABS: KETONES URINE NEGATIVE (NEGATIVE); LEUKOCYTE ESTERASE URINE 1+ (NEGATIVE); NITRITE URINE NEGATIVE (NEGATIVE); OCCULT BLOOD URINE 2+ (NEGATIVE); PROTEIN URINE 3+ (NEGATIVE); SPECIFIC GRAVITY URINE 1.038 (1.005-1.030)
[2019-01-18 08:39] LABS: CHLORIDE 94 mEq/L (98-107)
[2019-01-18 08:42] LABS: CLARITY URINE CLOUDY (CLEAR); COLOR URINE PALE YELLOW (YELLOW)
[2019-01-18] MEDS ORDERED: ONDANSETRON HCL 4MG/2ML INJ IV ONE (09:15)
[2019-01-18 10:42] VITALS: BP 205/103
== END 2019-01-18 10:42 | disposition home or self-care (01) ==
LOC: ER 05:37
DX: N39.0 Urinary tract infection, site not specified (principal); R11.2 Nausea with vomiting, unspecified; J45.909 Unspecified asthma, uncomplicated; E11.9 Type 2 diabetes mellitus without complications; F32.9 Major depressive disorder, single episode, unspecified; I10 Essential (primary) hypertension; Z91.018 Allergy to other foods; Z88.8 Allergy status to other drugs, medicaments and biological substances
CPT/HCPCS: 36415; 80053; 81003; 81025; 83690; 85025; 87086; 96361; 96374; 96375; 96376; 99283; J2270; J2405; J3490; J7030

== ENCOUNTER 2019-01-22 18:37 | Emergency (ER) | payer MEDICAID, OTHER ==
[~2019-01-22] VITALS: Ht 172.7 cm; Wt 127.0 kg
[2019-01-22] MEDS ORDERED: ONDANSETRON HCL 4MG/2ML INJ IV STA (21:07)
[2019-01-22] MEDS ORDERED: SODIUM CHLORIDE 0.9% 1,000 ML IV ONE (21:07)
[2019-01-22 21:35] LABS: BASOPHILS % 1.3 % (0.0-2.0); EOSINOPHILS % 0.3 % (0.0-5.0); HEMOGLOBIN. 12.8 g/dL (12.0-16.0); LYMPHOCYTES % 17.2 % (20.0-50.0); MEAN CORPUSCULAR HEMOGLOBIN 24.9 pg (28.0-32.0); MEAN CORPUSCULAR VOLUME 73.8 fL (81.0-99.0); MEAN PLATELET VOLUME 9.5 fl (7.4-10.4); MONOCYTES % 9.2 % (2.0-8.0); PLATELET 271 x1000/uL (130-400); RED BLOOD CELL COUNT 5.15 mill/uL (4.2-5.4); RED CELL DISTRIBUTION WIDTH 14.4 % (11.6-14.6)
[2019-01-22 21:39] LABS: CLARITY URINE CLOUDY (CLEAR); COLOR URINE YELLOW (YELLOW); KETONES URINE 1+ (NEGATIVE); LEUKOCYTE ESTERASE URINE NEGATIVE (NEGATIVE); NITRITE URINE NEGATIVE (NEGATIVE); OCCULT BLOOD URINE TRACE (NEGATIVE); PROTEIN URINE 3+ (NEGATIVE); SPECIFIC GRAVITY URINE 1.029 (1.005-1.030)
[2019-01-22 21:39] LABS: HCG SCREEN NEGATIVE
[2019-01-22 21:49] LABS: *AMPHETAMINES SCREEN URINE NEGATIVE (NEGATIVE); *BARBITURATES SCREEN URINE NEGATIVE (NEGATIVE); *BENZODIAZEPINES SCREEN URINE NEGATIVE (NEGATIVE)
[2019-01-22 21:50] LABS: *COCAINE SCREEN URINE NEGATIVE (NEGATIVE); METHADONE URINE SCREEN NEGATIVE (NEGATIVE); OPIATES URINE SCREEN NEGATIVE (NEGATIVE); PHENCYCLIDINE URINE SCREEN NEGATIVE (NEGATIVE)
[2019-01-22 21:51] LABS: CANNABINOID URINE SCREEN PRESUMTIVE POSITIVE (NEGATIVE)
[2019-01-22] MEDS ORDERED: MAGNESIUM/ALUMINUM HYDROXIDE/SIMETHICONE 30ML UDC PO ONE (22:30)
[2019-01-22] MEDS ORDERED: VISCOUS LIDOCAINE 2% 15 ML UDC PO ONE (22:30)
[2019-01-22] MEDS ORDERED: KETOROLAC 30MG/ML VIAL IV ONE (22:30)
[2019-01-22 23:06] LABS: CHLORIDE 97 mEq/L (98-107)
[2019-01-22 23:10] LABS: ETHANOL BLOOD < 10 mg/dL
[2019-01-23 04:28] VITALS: BP 184/100
== END 2019-01-23 04:43 | disposition short-term general hospital (02) ==
LOC: ER 18:37 → CANBEDREQ 01-23 04:52
DX: R10.84 Generalized abdominal pain (principal); K59.00 Constipation, unspecified; I31.3 Pericardial effusion (noninflammatory); J45.909 Unspecified asthma, uncomplicated; F32.9 Major depressive disorder, single episode, unspecified; E11.9 Type 2 diabetes mellitus without complications; I10 Essential (primary) hypertension
CPT/HCPCS: 36415; 71045; 74021; 74176; 80053; 80305; 80320; 81003; 81025; 82962; 83605; 83690; 84484; 84703; 85025; 85610; 93005; 96361; 96374; 99285; J2405; J7030; Z7610; J1885; G0480

== ENCOUNTER 2019-04-24 13:04 | Emergency (ER) | payer MEDICAID, OTHER ==
[~2019-04-24] VITALS: Ht 167.6 cm; Wt 91.0 kg
[2019-04-24] MEDS ORDERED: INSU100V3 SUBCUT (13:17)
[2019-04-24] MEDS ORDERED: ALBU4TAB6 PO (13:17)
[2019-04-24] MEDS ORDERED: METF-416 PO (13:17)
[2019-04-24] MEDS ORDERED: VISCOUS LIDOCAINE 2% 15 ML UDC PO STA (15:41)
[2019-04-24] MEDS ORDERED: DICYCLOMINE 10 MG/5 ML ORAL SYR PO STA (15:41)
[2019-04-24] MEDS ORDERED: MAGNESIUM/ALUMINUM HYDROXIDE/SIMETHICONE 30ML UDC PO STA (15:41)
[2019-04-24 16:07] LABS: BASOPHILS % 0.5 % (0.0-2.0); HEMATOCRIT. 36.9 % (36.0-48.0); HEMOGLOBIN. 12.5 g/dL (12.0-16.0); LYMPHOCYTES % 26.8 % (20.0-50.0); MEAN CORPUSCULAR HEMOGLOBIN 24.5 pg (28.0-32.0); MEAN CORPUSCULAR VOLUME 72.3 fL (81.0-99.0); MONOCYTES % 14.5 % (2.0-8.0); NEUTROPHILS % 58.2 % (40.0-76.0); PLATELET 243 x1000/uL (130-400); RED CELL DISTRIBUTION WIDTH 15.6 % (11.6-14.6)
[2019-04-24 16:13] LABS: CHLORIDE 92 mEq/L (98-107)
[2019-04-24] MEDS ORDERED: ONDANSETRON HCL 4MG/2ML INJ IV STA (16:26)
[2019-04-24] MEDS ORDERED: KETOROLAC 30MG/ML VIAL IV STA (16:26)
[2019-04-24] MEDS ORDERED: SODIUM CHLORIDE 0.9% 1,000 ML IV ONE (16:26)
[2019-04-24 19:37] LABS: CLARITY URINE TURBID (CLEAR); COLOR URINE YELLOW (YELLOW); KETONES URINE TRACE (NEGATIVE); LEUKOCYTE ESTERASE URINE 1+ (NEGATIVE); NITRITE URINE NEGATIVE (NEGATIVE); OCCULT BLOOD URINE 2+ (NEGATIVE); PROTEIN URINE 4+ (NEGATIVE); SPECIFIC GRAVITY URINE 1.025 (1.005-1.030); UROBILINOGEN URINE 0.2 E.U./dL (0.2-1.0)
[2019-04-24 22:16] VITALS: BP 184/122
== END 2019-04-24 22:17 | disposition home or self-care (01) ==
LOC: ER 13:04
DX: N30.00 Acute cystitis without hematuria (principal); R11.2 Nausea with vomiting, unspecified; J45.909 Unspecified asthma, uncomplicated; E11.9 Type 2 diabetes mellitus without complications; I10 Essential (primary) hypertension; Z79.899 Other long term (current) drug therapy; Z79.4 Long term (current) use of insulin; Z91.018 Allergy to other foods
CPT/HCPCS: 36415; 74176; 80053; 81003; 81025; 83690; 85025; 96374; 96375; 99285; J1885; J2405; J7030

== ENCOUNTER 2019-04-25 18:10 | Emergency (ER) | payer MEDICAID, OTHER ==
[~2019-04-25] VITALS: Ht 167.6 cm; Wt 100.0 kg
[~2019-04-25 18:10] MED LIST changes: +ALBU4TAB6 PO; +INSU100V3 SUBCUT; +METF-416 PO
[2019-04-25] MEDS ORDERED: SODIUM CHLORIDE 0.9% 1,000 ML IV ONE ×2 (19:30→23:47)
[2019-04-25] MEDS ORDERED: KETOROLAC 30MG/ML VIAL IV ONE (19:30)
[2019-04-25] MEDS ORDERED: CEFTRIAXONE 1 G PREMIX 50 ML IV ONE (19:30)
[2019-04-25] MEDS ORDERED: ONDANSETRON HCL 4MG/2ML INJ IV ONE (19:30)
[2019-04-25] MEDS ORDERED: VISCOUS LIDOCAINE 2% 15 ML UDC PO ONE (21:00)
[2019-04-25] MEDS ORDERED: MAGNESIUM/ALUMINUM HYDROXIDE/SIMETHICONE 30ML UDC PO ONE (21:00)
[2019-04-25] MEDS ORDERED: HYDROCODONE/ACETAMINOPHEN 5/325MG TABLET PO ONE (22:15)
[2019-04-26 00:23] LABS: BASOPHILS % 0.6 % (0.0-2.0); HEMATOCRIT. 38.5 % (36.0-48.0); HEMOGLOBIN. 13.1 g/dL (12.0-16.0); LYMPHOCYTES % 33.4 % (20.0-50.0); MEAN CORPUSCULAR HEMOGLOBIN 24.9 pg (28.0-32.0); MEAN CORPUSCULAR VOLUME 73.2 fL (81.0-99.0); MEAN PLATELET VOLUME 9.1 fl (7.4-10.4); PLATELET 221 x1000/uL (130-400); RED BLOOD CELL COUNT 5.27 mill/uL (4.2-5.4); RED CELL DISTRIBUTION WIDTH 15.6 % (11.6-14.6)
[2019-04-26 00:38] LABS: CHLORIDE 91 mEq/L (98-107); ETHANOL BLOOD < 10 mg/dL
[2019-04-26 01:00] LABS: HCG SCREEN NEGATIVE
[2019-04-26] MEDS ORDERED: CLONIDINE 0.1MG TABLET PO ONE (03:00)
[2019-04-26] MEDS ORDERED: ONDANSETRON HCL 4MG/2ML INJ IV STA (03:06)
[2019-04-26] MEDS ORDERED: SODIUM CHLORIDE 0.9% 1,000 ML IV ONE (03:06)
[2019-04-26] MEDS ORDERED: INSULIN REGULAR (HUMULIN R) 300UNITS/3ML SUBCUT ONE (03:15)
[2019-04-26] MEDS ORDERED: METOCLOPRAMIDE HCL 10MG/2ML VIAL IV ONE (03:15)
[2019-04-26] MEDS ORDERED: LORAZEPAM 2MG/ML CPJ IV ONE (03:30)
[2019-04-26 07:42] VITALS: BP 139/94
== END 2019-04-26 08:37 | disposition home or self-care (01) ==
LOC: ER 18:10
DX: N39.0 Urinary tract infection, site not specified (principal); R07.89 Other chest pain; J45.909 Unspecified asthma, uncomplicated; E11.9 Type 2 diabetes mellitus without complications; I10 Essential (primary) hypertension; Z79.4 Long term (current) use of insulin; Z79.899 Other long term (current) drug therapy
CPT/HCPCS: 36415; 70450; 80053; 80320; 81025; 82962; 84484; 84703; 85025; 93005; 96365; 96372; 96375; 99285; J0696; J1815; J1885; J2060; J2405; J2765; J7030; G0480

== ENCOUNTER 2019-05-20 22:32 | Emergency (ER) | payer OTHER ==
[~2019-05-20] VITALS: Ht 170.2 cm; Wt 113.0 kg
[2019-05-20] MEDS ORDERED: METOCLOPRAMIDE HCL 10MG/2ML VIAL IV STA (23:49)
[2019-05-20] MEDS ORDERED: MAGNESIUM/ALUMINUM HYDROXIDE/SIMETHICONE 30ML UDC PO STA (23:49)
[2019-05-20] MEDS ORDERED: MORPHINE SULFATE 4 MG/ML CPJ (NOT FOR IM USE) IV STA (23:49)
[2019-05-20] MEDS ORDERED: SODIUM CHLORIDE 0.9% 1,000 ML IV ONE (23:49)
[2019-05-20] MEDS ORDERED: PANTOPRAZOLE SODIUM 40 MG/VIAL IV STA (23:49)
[2019-05-21 00:43] LABS: BASOPHILS % 0.2 % (0.0-2.0); HEMATOCRIT. 36.5 % (36.0-48.0); HEMOGLOBIN. 12.3 g/dL (12.0-16.0); LYMPHOCYTES % 18.5 % (20.0-50.0); MEAN CORPUSCULAR VOLUME 73.7 fL (81.0-99.0); MEAN PLATELET VOLUME 9.4 fl (7.4-10.4); MONOCYTES % 5.9 % (2.0-8.0); NEUTROPHILS % 75.4 % (40.0-76.0); PLATELET 225 x1000/uL (130-400); RED BLOOD CELL COUNT 4.95 mill/uL (4.2-5.4); RED CELL DISTRIBUTION WIDTH 16.4 % (11.6-14.6)
[2019-05-21 00:49] LABS: CHLORIDE 96 mEq/L (98-107)
[2019-05-21 00:51] LABS: CLARITY URINE CLEAR (CLEAR); COLOR URINE YELLOW (YELLOW); KETONES URINE 1+ (NEGATIVE); LEUKOCYTE ESTERASE URINE NEGATIVE (NEGATIVE); NITRITE URINE NEGATIVE (NEGATIVE); OCCULT BLOOD URINE TRACE (NEGATIVE); PH URINE 8.5 (4.5-8.0); PROTEIN URINE 4+ (NEGATIVE); UROBILINOGEN URINE 0.2 E.U./dL (0.2-1.0)
[2019-05-21 00:54] LABS: ETHANOL BLOOD < 10 mg/dL
[2019-05-21 01:01] LABS: *AMPHETAMINES SCREEN URINE NEGATIVE (NEGATIVE); *BARBITURATES SCREEN URINE NEGATIVE (NEGATIVE); *BENZODIAZEPINES SCREEN URINE NEGATIVE (NEGATIVE); *COCAINE SCREEN URINE NEGATIVE (NEGATIVE)
[2019-05-21 01:03] LABS: METHADONE URINE SCREEN NEGATIVE (NEGATIVE); OPIATES URINE SCREEN NEGATIVE (NEGATIVE); PHENCYCLIDINE URINE SCREEN NEGATIVE (NEGATIVE)
[2019-05-21 01:05] LABS: CANNABINOID URINE SCREEN PRESUMTIVE POSITIVE (NEGATIVE)
[2019-05-21 04:22] VITALS: BP 181/111
== END 2019-05-21 04:26 | disposition home or self-care (01) ==
LOC: ER 22:32
DX: K31.84 Gastroparesis (principal); E11.9 Type 2 diabetes mellitus without complications; I10 Essential (primary) hypertension; J45.909 Unspecified asthma, uncomplicated; Z87.19 Personal history of other diseases of the digestive system; Z79.4 Long term (current) use of insulin; Z91.018 Allergy to other foods
CPT/HCPCS: 36415; 80053; 80305; 80320; 81003; 81025; 83690; 85025; 96361; 96374; 96375; 99284; C9113; J2270; J2765; J7030; G0480

== ENCOUNTER 2019-05-31 08:52 | Emergency (ER) | payer OTHER ==
[~2019-05-31] VITALS: Ht 170.2 cm; Wt 87.0 kg
[2019-05-31] MEDS ORDERED: FAMOTIDINE 20MG/2ML VIAL IV STA (09:02)
[2019-05-31] MEDS ORDERED: MORPHINE SULFATE 4 MG/ML CPJ (NOT FOR IM USE) IV STA (09:02)
[2019-05-31] MEDS ORDERED: ONDANSETRON HCL 4MG/2ML INJ IV STA (09:02)
[2019-05-31] MEDS ORDERED: LORAZEPAM 2MG/ML CPJ IV ONE (09:15)
[2019-05-31 09:51] LABS: CLARITY URINE CLEAR (CLEAR); COLOR URINE YELLOW (YELLOW); KETONES URINE NEGATIVE (NEGATIVE); LEUKOCYTE ESTERASE URINE TRACE (NEGATIVE); NITRITE URINE NEGATIVE (NEGATIVE); OCCULT BLOOD URINE 1+ (NEGATIVE); PH URINE 7.5 (4.5-8.0); PROTEIN URINE 3+ (NEGATIVE); UROBILINOGEN URINE 0.2 E.U./dL (0.2-1.0)
[2019-05-31 09:56] LABS: INR 0.9; PROTHROMBIN TIME 9.8 sec (9.6-11.0)
[2019-05-31 09:58] LABS: HEMATOCRIT. 42.8 % (36.0-48.0); HEMOGLOBIN. 14.4 g/dL (12.0-16.0); LYMPHOCYTES % 18.1 % (20.0-50.0); MEAN CORPUSCULAR HEMOGLOBIN 24.8 pg (28.0-32.0); MEAN CORPUSCULAR VOLUME 73.7 fL (81.0-99.0); MEAN PLATELET VOLUME 9.5 fl (7.4-10.4); MONOCYTES % 6.6 % (2.0-8.0); NEUTROPHILS % 74.3 % (40.0-76.0); PLATELET 234 x1000/uL (130-400); RED BLOOD CELL COUNT 5.81 mill/uL (4.2-5.4); RED CELL DISTRIBUTION WIDTH 15.8 % (11.6-14.6)
[2019-05-31 10:08] LABS: CHLORIDE 92 mEq/L (98-107)
[2019-05-31 10:12] LABS: ETHANOL BLOOD < 10 mg/dL
[2019-05-31 10:21] LABS: *AMPHETAMINES SCREEN URINE NEGATIVE (NEGATIVE); *BARBITURATES SCREEN URINE NEGATIVE (NEGATIVE); *BENZODIAZEPINES SCREEN URINE NEGATIVE (NEGATIVE); *COCAINE SCREEN URINE NEGATIVE (NEGATIVE)
[2019-05-31 10:25] LABS: METHADONE URINE SCREEN NEGATIVE (NEGATIVE)
[2019-05-31 10:26] LABS: OPIATES URINE SCREEN NEGATIVE (NEGATIVE); PHENCYCLIDINE URINE SCREEN NEGATIVE (NEGATIVE)
[2019-05-31 10:30] LABS: CANNABINOID URINE SCREEN PRESUMTIVE POSITIVE (NEGATIVE)
[2019-05-31] MEDS ORDERED: LABETALOL 5MG/ML SYR 20 MG/4 ML SYRINGE IV ONE (10:30)
[2019-05-31] MEDS ORDERED: FUROSEMIDE 20MG/2ML VIAL IVP ONE (10:45)
[2019-05-31] MEDS ORDERED: CEFTRIAXONE 1 G PREMIX 50 ML IV ONE (10:45)
[2019-05-31] MEDS ORDERED: INSULIN REGULAR (HUMULIN R) 300UNITS/3ML IV ONE (11:00)
[2019-05-31 12:30] VITALS: BP 130/76
== END 2019-05-31 13:00 | disposition home or self-care (01) ==
LOC: ER 08:52
DX: N39.0 Urinary tract infection, site not specified (principal); I16.0 Hypertensive urgency; J45.909 Unspecified asthma, uncomplicated; E11.9 Type 2 diabetes mellitus without complications; Z79.4 Long term (current) use of insulin; Z91.018 Allergy to other foods; Z79.899 Other long term (current) drug therapy; I11.0 Hypertensive heart disease with heart failure; I50.9 Heart failure, unspecified
CPT/HCPCS: 36415; 71045; 80053; 80305; 80320; 81003; 81025; 82962; 83690; 83880; 84484; 85025; 85610; 93005; 96365; 96375; 99285; J0696; J1815; J1940; J2060; J2270; J2405; J3490; Z7610; G0480

== ENCOUNTER 2019-06-16 20:15 | Emergency (ER) | payer OTHER ==
[~2019-06-16] VITALS: Ht 162.6 cm; Wt 82.0 kg
[2019-06-16] MEDS ORDERED: MORPHINE SULFATE 4 MG/ML CPJ (NOT FOR IM USE) IV STA (21:45)
[2019-06-16] MEDS ORDERED: SODIUM CHLORIDE 0.9% 1,000 ML IV ONE (21:45)
[2019-06-16] MEDS ORDERED: LABETALOL 5MG/ML SYR 20 MG/4 ML SYRINGE IV ONE ×2 (21:45→23:00)
[2019-06-16] MEDS ORDERED: ONDANSETRON HCL 4MG/2ML INJ IV STA (21:45)
[2019-06-16 21:58] LABS: EOSINOPHILS % 0.5 % (0.0-5.0); HEMATOCRIT. 34.6 % (36.0-48.0); HEMOGLOBIN. 11.8 g/dL (12.0-16.0); LYMPHOCYTES % 24.9 % (20.0-50.0); MEAN CORPUSCULAR VOLUME 73.4 fL (81.0-99.0); MEAN PLATELET VOLUME 9.2 fl (7.4-10.4); MONOCYTES % 10.5 % (2.0-8.0); NEUTROPHILS % 63.1 % (40.0-76.0); PLATELET 261 x1000/uL (130-400); RED BLOOD CELL COUNT 4.72 mill/uL (4.2-5.4); RED CELL DISTRIBUTION WIDTH 15.2 % (11.6-14.6)
[2019-06-16 22:00] LABS: CHLORIDE 99 mEq/L (98-107)
[2019-06-16 22:03] LABS: HCG SCREEN NEGATIVE
[2019-06-16 22:04] LABS: INR 0.9; PROTHROMBIN TIME 10.2 sec (9.6-11.0)
[2019-06-16 22:07] LABS: ETHANOL BLOOD < 10 mg/dL
[2019-06-16] MEDS ORDERED: PANTOPRAZOLE SODIUM 40 MG/VIAL IV ONE (23:00)
[2019-06-17] MEDS ORDERED: MORPHINE SULFATE 4 MG/ML CPJ (NOT FOR IM USE) IV ONE (00:45)
[2019-06-17 01:04] LABS: CLARITY URINE CLEAR (CLEAR); COLOR URINE YELLOW (YELLOW); KETONES URINE NEGATIVE (NEGATIVE); LEUKOCYTE ESTERASE URINE NEGATIVE (NEGATIVE); NITRITE URINE NEGATIVE (NEGATIVE); OCCULT BLOOD URINE 1+ (NEGATIVE); PH URINE 7.5 (4.5-8.0); PROTEIN URINE 3+ (NEGATIVE); SPECIFIC GRAVITY URINE 1.024 (1.005-1.030)
[2019-06-17] MEDS ORDERED: CEFTRIAXONE 1 G PREMIX 50 ML IV ONE (01:15)
[2019-06-17 01:19] LABS: *AMPHETAMINES SCREEN URINE NEGATIVE (NEGATIVE); *BARBITURATES SCREEN URINE NEGATIVE (NEGATIVE); *BENZODIAZEPINES SCREEN URINE NEGATIVE (NEGATIVE); *COCAINE SCREEN URINE NEGATIVE (NEGATIVE); METHADONE URINE SCREEN NEGATIVE (NEGATIVE)
[2019-06-17 01:20] LABS: PHENCYCLIDINE URINE SCREEN NEGATIVE (NEGATIVE)
[2019-06-17 01:30] LABS: CANNABINOID URINE SCREEN PRESUMTIVE POSITIVE (NEGATIVE); OPIATES URINE SCREEN PRESUMTIVE POSITIVE (NEGATIVE)
[2019-06-17 03:40] VITALS: BP 150/88
== END 2019-06-17 04:17 | disposition home or self-care (01) ==
LOC: ER 20:15
DX: N39.0 Urinary tract infection, site not specified (principal); I10 Essential (primary) hypertension; R11.10 Vomiting, unspecified; E11.9 Type 2 diabetes mellitus without complications; J45.909 Unspecified asthma, uncomplicated; Z91.018 Allergy to other foods; Z79.4 Long term (current) use of insulin
CPT/HCPCS: 36415; 71045; 74176; 80053; 80305; 80320; 81003; 81025; 83690; 83880; 84484; 84703; 85025; 85610; 93005; 96361; 96365; 96375; 96376; 99285; C9113; J0696; J2270; J2405; J3490; J7030; G0480

== ENCOUNTER 2019-07-01 08:28 | Emergency (ER) | payer OTHER ==
[~2019-07-01] VITALS: Ht 172.7 cm; Wt 109.0 kg
[2019-07-01 08:33] VITALS: BP 139/103
[2019-07-01] MEDS ORDERED: FLUORESCEIN SODIUM 1MG/STRIP BOTHEYE ONE (08:45)
[2019-07-01] MEDS ORDERED: ACETAMINOPHEN 325MG TABLET PO ONE (08:45)
== END 2019-07-01 09:16 | disposition home or self-care (01) ==
LOC: ER 08:28
DX: S00.12XA Contusion of left eyelid and periocular area, initial encounter (principal); E11.9 Type 2 diabetes mellitus without complications; I10 Essential (primary) hypertension; J45.909 Unspecified asthma, uncomplicated; Z79.4 Long term (current) use of insulin; Z91.018 Allergy to other foods; X58.XXXA Exposure to other specified factors, initial encounter; Y93.89 Activity, other specified; Y92.89 Other specified places as the place of occurrence of the external cause
CPT/HCPCS: 99283

== ENCOUNTER 2019-07-09 09:29 | Emergency (ER) | payer OTHER ==
[~2019-07-09] VITALS: Ht 160 cm; Wt 100.0 kg
[2019-07-09] MEDS ORDERED: SODIUM CHLORIDE 0.9% 1,000 ML IV ONE (10:06)
[2019-07-09] MEDS ORDERED: MORPHINE SULFATE 4 MG/ML CPJ (NOT FOR IM USE) IV STA (10:06)
[2019-07-09] MEDS ORDERED: ONDANSETRON HCL 4MG/2ML INJ IV STA (10:06)
[2019-07-09 10:52] LABS: BASOPHILS % 1.5 % (0.0-2.0); EOSINOPHILS % 0.7 % (0.0-5.0); HEMATOCRIT. 34.9 % (36.0-48.0); HEMOGLOBIN. 11.6 g/dL (12.0-16.0); LYMPHOCYTES % 21.2 % (20.0-50.0); MEAN CORPUSCULAR HEMOGLOBIN 24.6 pg (28.0-32.0); MEAN CORPUSCULAR VOLUME 73.9 fL (81.0-99.0); MEAN PLATELET VOLUME 8.7 fl (7.4-10.4); MONOCYTES % 10.4 % (2.0-8.0); NEUTROPHILS % 66.2 % (40.0-76.0); PLATELET 252 x1000/uL (130-400); RED BLOOD CELL COUNT 4.72 mill/uL (4.2-5.4); RED CELL DISTRIBUTION WIDTH 14.7 % (11.6-14.6)
[2019-07-09 10:59] LABS: CHLORIDE 99 mEq/L (98-107)
[2019-07-09 11:00] LABS: INR 0.9
[2019-07-09 11:02] LABS: ETHANOL BLOOD < 10 mg/dL
[2019-07-09 11:06] LABS: HCG SCREEN NEGATIVE
[2019-07-09 11:30] LABS: CLARITY URINE CLEAR (CLEAR); COLOR URINE YELLOW (YELLOW); KETONES URINE NEGATIVE (NEGATIVE); LEUKOCYTE ESTERASE URINE NEGATIVE (NEGATIVE); NITRITE URINE NEGATIVE (NEGATIVE); OCCULT BLOOD URINE 3+ (NEGATIVE); PH URINE 7.5 (4.5-8.0); PROTEIN URINE 2+ (NEGATIVE); SPECIFIC GRAVITY URINE 1.017 (1.005-1.030); UROBILINOGEN URINE 0.2 E.U./dL (0.2-1.0)
[2019-07-09] MEDS ORDERED: FAMOTIDINE 20MG/2ML VIAL IV ONE (11:45)
[2019-07-09 12:00] LABS: *AMPHETAMINES SCREEN URINE NEGATIVE (NEGATIVE); *BARBITURATES SCREEN URINE NEGATIVE (NEGATIVE); *BENZODIAZEPINES SCREEN URINE NEGATIVE (NEGATIVE); *COCAINE SCREEN URINE NEGATIVE (NEGATIVE)
[2019-07-09 12:01] LABS: METHADONE URINE SCREEN NEGATIVE (NEGATIVE); OPIATES URINE SCREEN NEGATIVE (NEGATIVE)
[2019-07-09 12:11] LABS: PHENCYCLIDINE URINE SCREEN NEGATIVE (NEGATIVE)
[2019-07-09 12:18] LABS: CANNABINOID URINE SCREEN PRESUMTIVE POSITIVE (NEGATIVE)
[2019-07-09] MEDS ORDERED: INSULIN REGULAR (HUMULIN R) 300UNITS/3ML IV ONE (12:30)
[2019-07-09] MEDS ORDERED: VISCOUS LIDOCAINE 2% 15 ML UDC MM STA (13:19)
[2019-07-09] MEDS ORDERED: MAGNESIUM/ALUMINUM HYDROXIDE/SIMETHICONE 30ML UDC PO ONE (13:30)
[2019-07-09 14:15] VITALS: BP 161/108
== END 2019-07-09 16:00 | disposition home or self-care (01) ==
LOC: ER 09:29
DX: R10.84 Generalized abdominal pain (principal); G89.29 Other chronic pain; E11.43 Type 2 diabetes mellitus with diabetic autonomic (poly)neuropathy; E11.65 Type 2 diabetes mellitus with hyperglycemia; K31.84 Gastroparesis; F12.10 Cannabis abuse, uncomplicated; I10 Essential (primary) hypertension; J45.909 Unspecified asthma, uncomplicated; Z79.4 Long term (current) use of insulin; Z91.018 Allergy to other foods
CPT/HCPCS: 36415; 71045; 74176; 80053; 80305; 80320; 81003; 81025; 82962; 83690; 84484; 84703; 85025; 85610; 93005; 96361; 96374; 96375; 99285; J1815; J2270; J2405; J3490; J7030; G0480

== ENCOUNTER 2019-08-14 21:51 | Emergency (ER) | payer OTHER ==
[~2019-08-14] VITALS: Ht 172.7 cm; Wt 90.0 kg
[2019-08-14] MEDS ORDERED: SODIUM CHLORIDE 0.9% 1,000 ML IV ONE (22:44)
[2019-08-14] MEDS ORDERED: KETOROLAC 30MG/ML VIAL IV STA (22:44)
[2019-08-14] MEDS ORDERED: ONDANSETRON HCL 4MG/2ML INJ IV STA (22:44)
[2019-08-14 23:32] LABS: BASOPHILS % 0.6 % (0.0-2.0); HEMATOCRIT. 36.7 % (36.0-48.0); HEMOGLOBIN. 12.3 g/dL (12.0-16.0); LYMPHOCYTES % 14.1 % (20.0-50.0); MEAN CORPUSCULAR HEMOGLOBIN 24.2 pg (28.0-32.0); MEAN CORPUSCULAR VOLUME 72.5 fL (81.0-99.0); MEAN PLATELET VOLUME 9.8 fl (7.4-10.4); MONOCYTES % 5.2 % (2.0-8.0); NEUTROPHILS % 80.1 % (40.0-76.0); PLATELET 282 x1000/uL (130-400); RED BLOOD CELL COUNT 5.06 mill/uL (4.2-5.4); RED CELL DISTRIBUTION WIDTH 14.7 % (11.6-14.6)
[2019-08-14 23:33] LABS: CHLORIDE 97 mEq/L (98-107)
[2019-08-14 23:36] LABS: PROTHROMBIN TIME 10.3 sec (9.6-11.0)
[2019-08-14 23:39] LABS: ETHANOL BLOOD < 10 mg/dL
[2019-08-14 23:45] LABS: BETA HYDROXYBUTYRATE 0.7 mMol/L (0.0-0.3)
[2019-08-14 23:49] LABS: CLARITY URINE CLOUDY (CLEAR); COLOR URINE YELLOW (YELLOW); KETONES URINE TRACE (NEGATIVE); LEUKOCYTE ESTERASE URINE NEGATIVE (NEGATIVE); NITRITE URINE NEGATIVE (NEGATIVE); OCCULT BLOOD URINE 1+ (NEGATIVE); PH URINE 8.5 (4.5-8.0); PROTEIN URINE 4+ (NEGATIVE); SPECIFIC GRAVITY URINE 1.031 (1.005-1.030)
[2019-08-15 00:05] LABS: METHADONE URINE SCREEN NEGATIVE (NEGATIVE)
[2019-08-15 00:06] LABS: *AMPHETAMINES SCREEN URINE NEGATIVE (NEGATIVE); *BARBITURATES SCREEN URINE NEGATIVE (NEGATIVE); *BENZODIAZEPINES SCREEN URINE NEGATIVE (NEGATIVE); *COCAINE SCREEN URINE NEGATIVE (NEGATIVE); PHENCYCLIDINE URINE SCREEN NEGATIVE (NEGATIVE)
[2019-08-15 00:13] LABS: CANNABINOID URINE SCREEN PRESUMTIVE POSITIVE (NEGATIVE); OPIATES URINE SCREEN PRESUMTIVE POSITIVE (NEGATIVE)
[2019-08-15] MEDS ORDERED: VISCOUS LIDOCAINE 2% 15 ML UDC MM STA (01:19)
[2019-08-15] MEDS ORDERED: MAGNESIUM/ALUMINUM HYDROXIDE/SIMETHICONE 30ML UDC PO ONE (01:30)
[2019-08-15] MEDS ORDERED: ONDANSETRON HCL 4MG/2ML INJ IV ONE (02:00)
[2019-08-15] MEDS ORDERED: HALOPERIDOL LACTATE 5MG/ML VIAL IM ONE (02:45)
[2019-08-15] MEDS ORDERED: LABETALOL 5MG/ML SYR 20 MG/4 ML SYRINGE IV ONE (02:45)
[2019-08-15 03:45] VITALS: BP 178/100
== END 2019-08-15 04:28 | disposition home or self-care (01) ==
LOC: ER 21:51
DX: R10.9 Unspecified abdominal pain (principal); F12.10 Cannabis abuse, uncomplicated; Z03.818 Encounter for observation for suspected exposure to other biological agents ruled out; J45.909 Unspecified asthma, uncomplicated; E11.9 Type 2 diabetes mellitus without complications; I10 Essential (primary) hypertension; Z91.018 Allergy to other foods
CPT/HCPCS: 36415; 71045; 74176; 80053; 80305; 80320; 81003; 81025; 82010; 83605; 83690; 83880; 84484; 85025; 85610; 87040; 87804; 96372; 96374; 96375; 96376; 99285; C9803; J1630; J1885; J2405; J3490; J7030; U0003; G0480

== ENCOUNTER 2019-10-25 01:45 | Emergency (ER) | payer OTHER ==
[~2019-10-25] VITALS: Ht 170.2 cm; Wt 82.0 kg
[2019-10-25] MEDS ORDERED: ONDANSETRON 4MG ODT PO ONE (05:00)
[2019-10-25 05:55] VITALS: BP 128/84
[2019-10-25] MEDS ORDERED: MAGNESIUM/ALUMINUM HYDROXIDE/SIMETHICONE 30ML UDC PO ONE (07:00)
[2019-10-25 07:15] LABS: CLARITY URINE CLEAR (CLEAR); COLOR URINE YELLOW (YELLOW); KETONES URINE NEGATIVE (NEGATIVE); LEUKOCYTE ESTERASE URINE NEGATIVE (NEGATIVE); NITRITE URINE NEGATIVE (NEGATIVE); OCCULT BLOOD URINE 1+ (NEGATIVE); PH URINE 7.5 (4.5-8.0); PROTEIN URINE 3+ (NEGATIVE); SPECIFIC GRAVITY URINE 1.033 (1.005-1.030)
[2019-10-25 09:07] LABS: BASOPHILS % 0.9 % (0.0-2.0); EOSINOPHILS % 0.4 % (0.0-5.0); LYMPHOCYTES % 25.7 % (20.0-50.0); MEAN CORPUSCULAR VOLUME 73.5 fL (81.0-99.0); MEAN PLATELET VOLUME 9.4 fl (7.4-10.4); MONOCYTES % 11.9 % (2.0-8.0); NEUTROPHILS % 61.1 % (40.0-76.0); PLATELET 298 x1000/uL (130-400); RED BLOOD CELL COUNT 5.43 mill/uL (4.2-5.4); RED CELL DISTRIBUTION WIDTH 15.4 % (11.6-14.6)
[2019-10-25 09:12] LABS: CHLORIDE 95 mEq/L (98-107)
[2019-10-25 09:24] LABS: B-HCG QUANTITATIVE 666 mIU/mL (<3)
== END 2019-10-25 09:48 | disposition home or self-care (01) ==
LOC: ER 01:45
DX: O26.891 Other specified pregnancy related conditions, first trimester (principal); O16.1 Unspecified maternal hypertension, first trimester; O24.911 Unspecified diabetes mellitus in pregnancy, first trimester; Z3A.01 Less than 8 weeks gestation of pregnancy; Z79.4 Long term (current) use of insulin; Z79.899 Other long term (current) drug therapy
CPT/HCPCS: 36415; 76801; 76817; 80053; 81003; 81025; 84702; 85025; 86850; 86900; 86901; 93005; 99285; Q0162

== ENCOUNTER 2019-10-29 15:04 | Emergency (ER) | payer OTHER ==
[~2019-10-29] VITALS: Ht 167.6 cm; Wt 113.0 kg
[2019-10-29] MEDS ORDERED: SODIUM CHLORIDE 0.9% 1,000 ML IV ONE (16:31)
[2019-10-29 16:41] LABS: EOSINOPHILS % 0.5 % (0.0-5.0); HEMATOCRIT. 34.8 % (36.0-48.0); HEMOGLOBIN. 11.4 g/dL (12.0-16.0); LYMPHOCYTES % 21.5 % (20.0-50.0); MEAN CORPUSCULAR HEMOGLOBIN 24.1 pg (28.0-32.0); MEAN CORPUSCULAR VOLUME 73.5 fL (81.0-99.0); MEAN PLATELET VOLUME 9.4 fl (7.4-10.4); MONOCYTES % 8.2 % (2.0-8.0); NEUTROPHILS % 68.8 % (40.0-76.0); PLATELET 243 x1000/uL (130-400); RED BLOOD CELL COUNT 4.73 mill/uL (4.2-5.4); RED CELL DISTRIBUTION WIDTH 15.3 % (11.6-14.6)
[2019-10-29] MEDS ORDERED: ACETAMINOPHEN WITH CODEINE 300/30MG TABLET PO ONE (16:45)
[2019-10-29 16:47] LABS: CHLORIDE 101 mEq/L (98-107)
[2019-10-29 17:04] LABS: CLARITY URINE CLEAR (CLEAR); COLOR URINE YELLOW (YELLOW); KETONES URINE NEGATIVE (NEGATIVE); LEUKOCYTE ESTERASE URINE NEGATIVE (NEGATIVE); NITRITE URINE NEGATIVE (NEGATIVE); OCCULT BLOOD URINE 1+ (NEGATIVE); PH URINE >=9.0 (4.5-8.0); PROTEIN URINE 3+ (NEGATIVE); SPECIFIC GRAVITY URINE 1.018 (1.005-1.030); UROBILINOGEN URINE 0.2 E.U./dL (0.2-1.0)
[2019-10-29 17:14] LABS: B-HCG QUANTITATIVE 1966 mIU/mL (<3)
[2019-10-29 17:22] LABS: *BARBITURATES SCREEN URINE NEGATIVE (NEGATIVE); *BENZODIAZEPINES SCREEN URINE NEGATIVE (NEGATIVE); *COCAINE SCREEN URINE NEGATIVE (NEGATIVE); CANNABINOID URINE SCREEN NEGATIVE (NEGATIVE); METHADONE URINE SCREEN NEGATIVE (NEGATIVE); OPIATES URINE SCREEN NEGATIVE (NEGATIVE); PHENCYCLIDINE URINE SCREEN NEGATIVE (NEGATIVE)
[2019-10-29 17:23] LABS: *AMPHETAMINES SCREEN URINE NEGATIVE (NEGATIVE)
[2019-10-29] MEDS ORDERED: MAGNESIUM/ALUMINUM HYDROXIDE/SIMETHICONE 30ML UDC PO ONE (18:00)
[2019-10-29] MEDS ORDERED: LABETALOL HCL 100MG TABLET PO ONE (18:30)
[2019-10-29] MEDS ORDERED: MORPHINE SULFATE 4 MG/ML CPJ (NOT FOR IM USE) IV STA (18:49)
[2019-10-29] MEDS ORDERED: ONDANSETRON HCL 4MG/2ML INJ IV STA (18:49)
[2019-10-29] MEDS ORDERED: LORAZEPAM 2MG/ML CPJ IV ONE (19:00)
[2019-10-29] MEDS ORDERED: DICYCLOMINE 10 MG/5 ML ORAL SYR PO STA (20:03)
[2019-10-29] MEDS ORDERED: VISCOUS LIDOCAINE 2% 15 ML UDC PO STA (20:03)
[2019-10-29] MEDS ORDERED: MAGNESIUM/ALUMINUM HYDROXIDE/SIMETHICONE 30ML UDC PO STA (20:03)
[2019-10-29] MEDS ORDERED: LABETALOL HCL 20MG/4ML CARPUJECT IV ONE ×2 (20:15)
[2019-10-29] MEDS ORDERED: LABETALOL 5MG/ML SYR 20 MG/4 ML SYRINGE IV NR ×2 (20:30→22:00)
[2019-10-29] MEDS ORDERED: INSULIN REGULAR (HUMULIN R) 300UNITS/3ML SUBCUT ONE (21:45)
[2019-10-30 00:10] VITALS: BP 177/103
== END 2019-10-30 00:20 | disposition short-term general hospital (02) ==
LOC: ER 15:04 → CANBEDREQ 22:43 → ER 10-30 00:20
DX: I16.1 Hypertensive emergency (principal); I10 Essential (primary) hypertension; R10.9 Unspecified abdominal pain; E78.00 Pure hypercholesterolemia, unspecified; E11.9 Type 2 diabetes mellitus without complications; Z91.018 Allergy to other foods
CPT/HCPCS: 36415; 74181; 76801; 76817; 80053; 80305; 81003; 82962; 84702; 85025; 93005; 96372; 96374; 96375; 96376; 99285; J1815; J2270; J2405; J3490; J7030

== ENCOUNTER 2019-11-16 11:45 | Emergency (ER) | payer MEDICAID, OTHER ==
[~2019-11-16] VITALS: Ht 172.7 cm; Wt 90.0 kg
[2019-11-16] MEDS ORDERED: ACETAMINOPHEN 325MG TABLET PO ONE (12:15)
[2019-11-16] MEDS ORDERED: ONDANSETRON HCL 4MG/2ML INJ IV ONE (12:15)
[2019-11-16] MEDS ORDERED: MORPHINE SULFATE 4 MG/ML CPJ (NOT FOR IM USE) IV ONE (12:45)
[2019-11-16 13:19] LABS: BASOPHILS % 0.5 % (0.0-2.0); EOSINOPHILS % 0.4 % (0.0-5.0); HEMATOCRIT. 33.2 % (36.0-48.0); HEMOGLOBIN. 11.2 g/dL (12.0-16.0); LYMPHOCYTES % 20.9 % (20.0-50.0); MEAN CORPUSCULAR HEMOGLOBIN 24.7 pg (28.0-32.0); MEAN CORPUSCULAR VOLUME 73.1 fL (81.0-99.0); MEAN PLATELET VOLUME 9.4 fl (7.4-10.4); MONOCYTES % 8.6 % (2.0-8.0); NEUTROPHILS % 69.6 % (40.0-76.0); PLATELET 253 x1000/uL (130-400); RED BLOOD CELL COUNT 4.54 mill/uL (4.2-5.4); RED CELL DISTRIBUTION WIDTH 15.3 % (11.6-14.6)
[2019-11-16 13:24] LABS: CHLORIDE 101 mEq/L (98-107)
[2019-11-16 13:51] LABS: B-HCG QUANTITATIVE 8300 mIU/mL (<3)
[2019-11-16 13:58] VITALS: BP 201/110
[2019-11-16] MEDS ORDERED: MAGNESIUM/ALUMINUM HYDROXIDE/SIMETHICONE 30ML UDC PO STA (14:14)
[2019-11-16] MEDS ORDERED: VISCOUS LIDOCAINE 2% 15 ML UDC PO STA (14:14)
[2019-11-16] MEDS ORDERED: DICYCLOMINE 10 MG/5 ML ORAL SYR PO STA (14:14)
[2019-11-16] MEDS ORDERED: FAMOTIDINE 20MG TABLET PO ONE (14:15)
[2019-11-16 15:23] LABS: CLARITY URINE CLEAR (CLEAR); COLOR URINE YELLOW (YELLOW); KETONES URINE NEGATIVE (NEGATIVE); LEUKOCYTE ESTERASE URINE NEGATIVE (NEGATIVE); NITRITE URINE NEGATIVE (NEGATIVE); OCCULT BLOOD URINE 1+ (NEGATIVE); PH URINE 8.5 (4.5-8.0); PROTEIN URINE 3+ (NEGATIVE); SPECIFIC GRAVITY URINE 1.016 (1.005-1.030); UROBILINOGEN URINE 0.2 E.U./dL (0.2-1.0)
== END 2019-11-16 15:15 | disposition home or self-care (01) ==
LOC: ER 12:03
DX: O20.9 Hemorrhage in early pregnancy, unspecified (principal); O24.911 Unspecified diabetes mellitus in pregnancy, first trimester; O26.891 Other specified pregnancy related conditions, first trimester; R10.84 Generalized abdominal pain; Z3A.01 Less than 8 weeks gestation of pregnancy; Z79.4 Long term (current) use of insulin
CPT/HCPCS: 36415; 76801; 76817; 80053; 81003; 83690; 84702; 85025; 86850; 86900; 86901; 93005; 96374; 96375; 99285; J2270; J2405

== ENCOUNTER 2020-02-12 03:17 | Emergency (ER) | payer MEDICAID ==
[~2020-02-12] VITALS: Ht 170.2 cm; Wt 113.0 kg
[2020-02-12] MEDS ORDERED: ONDANSETRON 4MG ODT PO STA (04:53)
[2020-02-12] MEDS ORDERED: HYDROCODONE/ACETAMINOPHEN 10/325MG TABLET PO ONE (05:00)
[2020-02-12 05:58] LABS: BASOPHILS % 0.9 % (0.0-2.0); EOSINOPHILS % 0.2 % (0.0-5.0); HEMATOCRIT. 33.2 % (36.0-48.0); HEMOGLOBIN. 10.8 g/dL (12.0-16.0); LYMPHOCYTES % 17.8 % (20.0-50.0); MEAN CORPUSCULAR HEMOGLOBIN 23.5 pg (28.0-32.0); MEAN CORPUSCULAR VOLUME 72.1 fL (81.0-99.0); MEAN PLATELET VOLUME 8.8 fl (7.4-10.4); MONOCYTES % 6.4 % (2.0-8.0); NEUTROPHILS % 74.7 % (40.0-76.0); PLATELET 269 x1000/uL (130-400); RED CELL DISTRIBUTION WIDTH 14.2 % (11.6-14.6)
[2020-02-12 06:04] LABS: CHLORIDE 99 mEq/L (98-107)
[2020-02-12 06:09] LABS: ETHANOL BLOOD < 10 mg/dL
[2020-02-12 06:19] LABS: HCG SCREEN NEGATIVE
[2020-02-12] MEDS ORDERED: VISCOUS LIDOCAINE 2% 15 ML UDC MM STA (06:42)
[2020-02-12] MEDS ORDERED: MAGNESIUM/ALUMINUM HYDROXIDE/SIMETHICONE 30ML UDC PO ONE (06:45)
[2020-02-12 07:30] LABS: CLARITY URINE CLOUDY (CLEAR); COLOR URINE YELLOW (YELLOW); KETONES URINE NEGATIVE (NEGATIVE); LEUKOCYTE ESTERASE URINE NEGATIVE (NEGATIVE); NITRITE URINE NEGATIVE (NEGATIVE); OCCULT BLOOD URINE 2+ (NEGATIVE); PH URINE 8.5 (4.5-8.0); PROTEIN URINE 4+ (NEGATIVE); SPECIFIC GRAVITY URINE 1.025 (1.005-1.030)
[2020-02-12 07:42] LABS: *AMPHETAMINES SCREEN URINE NEGATIVE (NEGATIVE); *BARBITURATES SCREEN URINE NEGATIVE (NEGATIVE); *BENZODIAZEPINES SCREEN URINE NEGATIVE (NEGATIVE); *COCAINE SCREEN URINE NEGATIVE (NEGATIVE); METHADONE URINE SCREEN NEGATIVE (NEGATIVE); OPIATES URINE SCREEN NEGATIVE (NEGATIVE)
[2020-02-12 07:43] LABS: CANNABINOID URINE SCREEN NEGATIVE (NEGATIVE); PHENCYCLIDINE URINE SCREEN NEGATIVE (NEGATIVE)
[2020-02-12 08:45] VITALS: BP 123/99
[2020-02-12] MEDS ORDERED: ONDANSETRON HCL 4MG TABLET PO ONE (08:45)
[2020-02-12] MEDS ORDERED: METOCLOPRAMIDE HCL 10MG TABLET PO ONE (08:45)
== END 2020-02-12 08:56 | disposition home or self-care (01) ==
LOC: ER 03:17
DX: R10.9 Unspecified abdominal pain (principal); R11.2 Nausea with vomiting, unspecified; E11.9 Type 2 diabetes mellitus without complications; J45.909 Unspecified asthma, uncomplicated; Z91.018 Allergy to other foods
CPT/HCPCS: 36415; 80053; 80305; 80320; 81003; 81025; 83690; 84703; 85025; 93005; 99284; J8597; Q0162; G0480

== ENCOUNTER 2020-02-14 03:55 | Emergency (ER) | payer MEDICAID ==
[~2020-02-14] VITALS: Ht 162.6 cm; Wt 100.0 kg
[2020-02-14] MEDS ORDERED: MORPHINE SULFATE 4 MG/ML CPJ (NOT FOR IM USE) IV STA (05:08)
[2020-02-14] MEDS ORDERED: ONDANSETRON HCL 4MG/2ML INJ IV STA (05:08)
[2020-02-14] MEDS ORDERED: PIPERACILLIN/TAZ 3.375G PREMIX 50 ML IV ONE (05:15)
[2020-02-14] MEDS ORDERED: CLINDAMYCIN 600 MG in DEXTROSE 5% WATER 50 ML IV ONE (05:15)
[2020-02-14] MEDS ORDERED: SODIUM CHLORIDE 0.9% 1,000 ML IV ONE (05:15)
[2020-02-14 05:54] LABS: BASOPHILS % 0.9 % (0.0-2.0); EOSINOPHILS % 0.3 % (0.0-5.0); HEMATOCRIT. 34.7 % (36.0-48.0); HEMOGLOBIN. 11.1 g/dL (12.0-16.0); LYMPHOCYTES % 11.5 % (20.0-50.0); MEAN CORPUSCULAR HEMOGLOBIN 23.5 pg (28.0-32.0); MEAN CORPUSCULAR VOLUME 73.6 fL (81.0-99.0); MEAN PLATELET VOLUME 9.1 fl (7.4-10.4); MONOCYTES % 8.2 % (2.0-8.0); NEUTROPHILS % 79.1 % (40.0-76.0); PLATELET 247 x1000/uL (130-400); RED BLOOD CELL COUNT 4.72 mill/uL (4.2-5.4); RED CELL DISTRIBUTION WIDTH 14.8 % (11.6-14.6)
[2020-02-14 05:56] LABS: CHLORIDE 102 mEq/L (98-107)
[2020-02-14] MEDS ORDERED: CLINDAMYCIN 600MG PREMIX 50 ML IV SCH (06:00)
[2020-02-14] MEDS ORDERED: IOHEXOL-300 100 ML BOTTLE ONE (06:27)
[2020-02-14] MEDS ORDERED: MORPHINE SULFATE 4 MG/ML CPJ (NOT FOR IM USE) IV NR (13:30)
[2020-02-14] MEDS ORDERED: DEXAMETHASONE 10 MG/ML VIAL IV NR (13:30)
[2020-02-14] MEDS ORDERED: CLINDAMYCIN 600MG PREMIX 50 ML IV NR (14:00)
[2020-02-14 15:00] VITALS: BP 145/87
== END 2020-02-14 15:13 | disposition home or self-care (01) ==
LOC: ER 04:09
DX: L03.211 Cellulitis of face (principal); L02.01 Cutaneous abscess of face; J45.909 Unspecified asthma, uncomplicated; E11.9 Type 2 diabetes mellitus without complications; I10 Essential (primary) hypertension; Z79.4 Long term (current) use of insulin; Z91.018 Allergy to other foods; Z79.899 Other long term (current) drug therapy
CPT/HCPCS: 36415; 70487; 80053; 81025; 83605; 84145; 85025; 87040; 96365; 96366; 96367; 96375; 96376; 99285; J1100; J2270; J2405; J2543; J3490; J7030; Q9967; J7060

== ENCOUNTER 2020-04-03 10:31 | Inpatient (IN) | payer MEDICAID, OTHER ==
[~2020-04-03] VITALS: Ht 160 cm; Wt 118.8 kg
[2020-04-03] MEDS ORDERED: CLINDAMYCIN 600 MG in DEXTROSE 5% WATER 50 ML IV ONE (11:00)
[2020-04-03] MEDS ORDERED: PIPERACILLIN/TAZ 3.375G PREMIX 50 ML IV ONE (11:00)
[2020-04-03] MEDS ORDERED: SODIUM CHLORIDE 0.9% 1,000 ML IV ONE (11:00)
[2020-04-03] MEDS ORDERED: MORPHINE SULFATE 4 MG/ML CPJ (NOT FOR IM USE) IV ONE (11:00)
[2020-04-03] MEDS ORDERED: VANCOMYCIN 1 G PREMIX 200 ML IV ONE (11:00)
[2020-04-03 12:29] LABS: EOSINOPHILS % 0.5 % (0.0-5.0); HEMOGLOBIN. 9.5 g/dL (12.0-16.0); LYMPHOCYTES % 18.7 % (20.0-50.0); MEAN CORPUSCULAR HEMOGLOBIN 22.9 pg (28.0-32.0); MEAN CORPUSCULAR VOLUME 72.4 fL (81.0-99.0); MEAN PLATELET VOLUME 9.4 fl (7.4-10.4); MONOCYTES % 10.4 % (2.0-8.0); NEUTROPHILS % 69.4 % (40.0-76.0); PLATELET 231 x1000/uL (130-400); RED BLOOD CELL COUNT 4.14 mill/uL (4.2-5.4); RED CELL DISTRIBUTION WIDTH 14.8 % (11.6-14.6)
[2020-04-03 12:36] LABS: CHLORIDE 104 mEq/L (98-107)
[2020-04-03 12:47] LABS: CREATINE KINASE 524 IU/L (26-192)
[2020-04-03] MEDS ORDERED: IOHEXOL-300 100 ML BOTTLE ONE (14:10)
[2020-04-03 15:25] LABS: CLARITY URINE CLOUDY (CLEAR); COLOR URINE YELLOW (YELLOW); KETONES URINE NEGATIVE (NEGATIVE); LEUKOCYTE ESTERASE URINE NEGATIVE (NEGATIVE); NITRITE URINE NEGATIVE (NEGATIVE); OCCULT BLOOD URINE 2+ (NEGATIVE); PH URINE 6.5 (4.5-8.0); PROTEIN URINE 3+ (NEGATIVE); SPECIFIC GRAVITY URINE 1.015 (1.005-1.030); UROBILINOGEN URINE 0.2 E.U./dL (0.2-1.0)
[2020-04-03 16:38] LABS: INR 0.9; PROTHROMBIN TIME 9.8 sec (9.6-11.0)
[2020-04-03] MEDS ORDERED: MAGNESIUM/ALUMINUM HYDROXIDE/SIMETHICONE 30ML UDC PO PRN (22:45)
[2020-04-03] MEDS ORDERED: NA PHOS,M-B/NA PHOS,DI-BA ENEMA 118ML PR PRN (22:45)
[2020-04-03] MEDS ORDERED: DOCUSATE SODIUM 100MG CAPSULE PO PRN (22:45)
[2020-04-03] MEDS ORDERED: IPRATROPIUM/ALBUTEROL 0.5-3(2.5)MG/3ML NEB NEB PRN (22:45)
[2020-04-03] MEDS ORDERED: DIPHENHYDRAMINE 50MG/ML VIAL IV PRN (22:45)
[2020-04-03] MEDS ORDERED: HYDROCODONE/ACETAMINOPHEN 5/325MG TABLET PO PRN (22:45)
[2020-04-03] MEDS ORDERED: LORAZEPAM 2MG/ML CPJ IV PRN (22:45)
[2020-04-03] MEDS ORDERED: GUAIFENESIN 200MG/10ML SUGAR FREE UDC PO PRN (22:45)
[2020-04-03] MEDS ORDERED: ACETAMINOPHEN 325MG TABLET PO PRN (22:45)
[2020-04-03] MEDS ORDERED: DEXTROSE 50% WATER 50ML SYRINGE IV PRN (22:45)
[2020-04-04] MEDS: VANCOMYCIN 750 MG PREMIX 150 ML IV SCH ×3 (01:30→18:00)
[2020-04-04] MEDS: SODIUM CHLORIDE 0.45% 1,000 ML IV SCH ×2 (03:34→21:36)
[2020-04-04] MEDS: PIPERACILLIN/TAZ 3.375G PREMIX 50 ML IV SCH ×2 (03:34→08:28)
[2020-04-04 05:30] LABS: BASOPHILS % 0.5 % (0.0-2.0); EOSINOPHILS % 1.8 % (0.0-5.0); HEMOGLOBIN. 9.6 g/dL (12.0-16.0); LYMPHOCYTES % 26.6 % (20.0-50.0); MEAN CORPUSCULAR HEMOGLOBIN 22.3 pg (28.0-32.0); MEAN CORPUSCULAR VOLUME 71.6 fL (81.0-99.0); MEAN PLATELET VOLUME 8.8 fl (7.4-10.4); MONOCYTES % 12.6 % (2.0-8.0); NEUTROPHILS % 58.5 % (40.0-76.0); PLATELET 245 x1000/uL (130-400); RED BLOOD CELL COUNT 4.33 mill/uL (4.2-5.4); RED CELL DISTRIBUTION WIDTH 15.1 % (11.6-14.6)
[2020-04-04 05:38] LABS: CHLORIDE 104 mEq/L (98-107)
[2020-04-04 05:57] LABS: LDL CHOLESTEROL 201 mg/dL (5-100)
[2020-04-04 05:58] LABS: CREATINE KINASE 308 IU/L (26-192)
[2020-04-04 05:59] LABS: HDL CHOLESTEROL 74 mg/dL (40-59)
[2020-04-04 06:01] LABS: CREATINE KINASE MB FRACTION 2.2 ng/mL (0.5-3.6)
[2020-04-04] MEDS: SODIUM CHLORIDE 0.9% INJ 3ML FLUSH IVF SCH ×3 (08:28→21:38)
[2020-04-04] MEDS: BLOOD SUGAR DIAGNOSTIC STRIP TEST SCH ×4 (08:28→21:37)
[2020-04-04] MEDS: INSULIN LISPRO 100 UNITS/ML SUBCUT SCH ×4 (08:28→21:00)
[2020-04-04] MEDS: ENOXAPARIN 30MG/0.3ML SYR SUBCUT SCH ×2 (08:29→21:38)
[2020-04-04] MEDS: MORPHINE SULFATE 2 MG/ML CPJ (NOT FOR IM USE) IV PRN ×2 (11:44→21:35)
[2020-04-04 12:17] VITALS: BP 157/99
[2020-04-04] MEDS ORDERED: INSU100I24 SQ (12:58)
[2020-04-04] MEDS ORDERED: ALBU4TAB6 PO (12:59)
[2020-04-04] MEDS ORDERED: INSU100I38 SQ (12:59)
[2020-04-04 13:00] VITALS: BP 168/94
[2020-04-04] MEDS ORDERED: PIPERACILLIN/TAZOBACTAM 3.375 G in DEXT 5% WATER 100 ML IV SCH (15:00)
[2020-04-04 16:03] LABS: CREATINE KINASE 264 IU/L (26-192)
[2020-04-04 16:14] VITALS: BP 155/101
[2020-04-04] MEDS: PIPERACILLIN/TAZOBACTAM 3.375 G in DEXT 5% WATER 100 ML IV SCH ×2 (17:05→21:37)
[2020-04-04 20:00] VITALS: BP 176/99
[2020-04-04] MEDS: CLONIDINE 0.1MG TABLET PO PRN (21:39)
[2020-04-05] VITALS: BP 136/82
[2020-04-05] MEDS: VANCOMYCIN 750 MG PREMIX 150 ML IV SCH ×3 (01:16→17:46)
[2020-04-05 04:00] VITALS: BP 174/100
[2020-04-05] MEDS: PIPERACILLIN/TAZOBACTAM 3.375 G in DEXT 5% WATER 100 ML IV SCH ×4 (04:00→21:38)
[2020-04-05] MEDS: SODIUM CHLORIDE 0.9% INJ 3ML FLUSH IVF SCH ×3 (06:00→21:39)
[2020-04-05] MEDS: BLOOD SUGAR DIAGNOSTIC STRIP TEST SCH ×4 (06:36→21:39)
[2020-04-05] MEDS: CLONIDINE 0.1MG TABLET PO PRN ×2 (06:37→10:42)
[2020-04-05 08:20] VITALS: BP 167/99
[2020-04-05] MEDS: INSULIN LISPRO 100 UNITS/ML SUBCUT SCH ×4 (08:50→21:39)
[2020-04-05] MEDS: ENOXAPARIN 30MG/0.3ML SYR SUBCUT SCH ×3 (08:51→21:39)
[2020-04-05 12:36] VITALS: BP 170/89
[2020-04-05 16:16] VITALS: BP 159/78
[2020-04-05] MEDS: SODIUM CHLORIDE 0.45% 1,000 ML IV SCH (16:30)
[2020-04-05 20:00] VITALS: BP 140/90
[2020-04-06] VITALS (7 sets, daily range): BP systolic 134–184; BP diastolic 57–115
[2020-04-06] MEDS: CLONIDINE 0.1MG TABLET PO PRN (01:07)
[2020-04-06] MEDS: VANCOMYCIN 750 MG PREMIX 150 ML IV SCH ×3 (01:07→17:56)
[2020-04-06] MEDS: PIPERACILLIN/TAZOBACTAM 3.375 G in DEXT 5% WATER 100 ML IV SCH ×4 (02:43→20:35)
[2020-04-06] MEDS: SODIUM CHLORIDE 0.9% INJ 3ML FLUSH IVF SCH ×3 (06:06→20:35)
[2020-04-06] MEDS: HYDRALAZINE 20MG/ML VIAL IV PRN (06:16)
[2020-04-06] MEDS: BLOOD SUGAR DIAGNOSTIC STRIP TEST SCH ×4 (06:27→20:35)
[2020-04-06] MEDS: ENOXAPARIN 30MG/0.3ML SYR SUBCUT SCH ×3 (09:00→20:35)
[2020-04-06 09:10] LABS: CHLORIDE 105 mEq/L (98-107)
[2020-04-06 09:17] LABS: VANCOMYCIN TROUGH 15.1 ug/mL (5.0-10.0)
[2020-04-06] MEDS: INSULIN LISPRO 100 UNITS/ML SUBCUT SCH ×4 (09:30→20:34)
[2020-04-06] MEDS: SODIUM CHLORIDE 0.45% 1,000 ML IV SCH (12:30)
[2020-04-06] MEDS: MORPHINE SULFATE 2 MG/ML CPJ (NOT FOR IM USE) IV PRN (23:31)
[2020-04-07 00:30] VITALS: BP 153/88
[2020-04-07] MEDS: VANCOMYCIN 750 MG PREMIX 150 ML IV SCH ×3 (01:15→18:37)
[2020-04-07] MEDS: PIPERACILLIN/TAZOBACTAM 3.375 G in DEXT 5% WATER 100 ML IV SCH ×4 (02:03→20:45)
[2020-04-07 04:30] VITALS: BP 184/103
[2020-04-07] MEDS: HYDRALAZINE 20MG/ML VIAL IV PRN ×3 (04:40→14:25)
[2020-04-07] MEDS: SODIUM CHLORIDE 0.9% INJ 3ML FLUSH IVF SCH ×3 (05:49→20:46)
[2020-04-07] MEDS: BLOOD SUGAR DIAGNOSTIC STRIP TEST SCH ×4 (06:51→20:44)
[2020-04-07] MEDS: MORPHINE SULFATE 2 MG/ML CPJ (NOT FOR IM USE) IV PRN ×3 (07:55→22:00)
[2020-04-07] MEDS: SODIUM CHLORIDE 0.45% 1,000 ML IV SCH (07:56)
[2020-04-07 08:00] VITALS: BP 172/103
[2020-04-07] MEDS: ENOXAPARIN 30MG/0.3ML SYR SUBCUT SCH ×2 (08:50→20:46)
[2020-04-07] MEDS: INSULIN LISPRO 100 UNITS/ML SUBCUT SCH ×4 (09:03→20:46)
[2020-04-07] MEDS: ONDANSETRON HCL 4MG/2ML INJ IV PRN ×2 (11:31→15:53)
[2020-04-07 11:35] VITALS: BP 142/83
[2020-04-07] MEDS ORDERED: LORAZEPAM 2MG/ML CPJ IV SCH (11:45)
[2020-04-07] MEDS: LEVETIRACETAM 500MG TABLET PO SCH ×2 (14:00→20:50)
[2020-04-07] MEDS ORDERED: MORPHINE SULFATE 2 MG/ML CPJ (NOT FOR IM USE) IV NR (14:26)
[2020-04-07 16:00] VITALS: BP 147/90
[2020-04-07] MEDS ORDERED: METOCLOPRAMIDE HCL 10MG/2ML VIAL IV PRN (18:30)
[2020-04-07] MEDS: LORAZEPAM 2MG/ML CPJ IV PRN (18:56)
[2020-04-07 20:00] VITALS: BP 147/81
[2020-04-08] VITALS (7 sets, daily range): BP systolic 133–168; BP diastolic 63–95
[2020-04-08] MEDS: CEFAZOLIN 1000MG PREMIX 50 ML IV SCH ×3 (02:14→17:05)
[2020-04-08] MEDS: SODIUM CHLORIDE 0.45% 1,000 ML IV SCH (02:14)
[2020-04-08] MEDS: SODIUM CHLORIDE 0.9% INJ 3ML FLUSH IVF SCH ×3 (04:29→21:50)
[2020-04-08] MEDS: LORAZEPAM 2MG/ML CPJ IV PRN (04:29)
[2020-04-08] MEDS: CLONIDINE 0.1MG TABLET PO PRN ×2 (05:58→21:49)
[2020-04-08] MEDS ORDERED: CEFAZOLIN SODIUM 1000MG/VIAL IV SCH (06:00)
[2020-04-08] MEDS: BLOOD SUGAR DIAGNOSTIC STRIP TEST SCH ×4 (06:23→21:50)
[2020-04-08] MEDS: LEVETIRACETAM 500MG TABLET PO SCH ×2 (08:17→21:00)
[2020-04-08] MEDS: INSULIN LISPRO 100 UNITS/ML SUBCUT SCH ×4 (08:17→21:50)
[2020-04-08] MEDS: ENOXAPARIN 30MG/0.3ML SYR SUBCUT SCH ×2 (08:17→21:00)
[2020-04-09] VITALS: BP 164/76
[2020-04-09] MEDS: SODIUM CHLORIDE 0.45% 1,000 ML IV SCH ×2 (01:13→08:22)
[2020-04-09] MEDS: CEFAZOLIN 1000MG PREMIX 50 ML IV SCH ×3 (01:13→16:58)
[2020-04-09 04:00] VITALS: BP 131/76
[2020-04-09] MEDS: SODIUM CHLORIDE 0.9% INJ 3ML FLUSH IVF SCH ×2 (05:02→11:55)
[2020-04-09] MEDS: BLOOD SUGAR DIAGNOSTIC STRIP TEST SCH ×3 (06:49→16:58)
[2020-04-09 07:54] VITALS: BP 166/86
[2020-04-09] MEDS: LEVETIRACETAM 500MG TABLET PO SCH (08:21)
[2020-04-09] MEDS: INSULIN LISPRO 100 UNITS/ML SUBCUT SCH ×3 (08:21→17:12)
[2020-04-09] MEDS: ENOXAPARIN 30MG/0.3ML SYR SUBCUT SCH ×2 (08:22→08:29)
[2020-04-09 12:10] VITALS: BP 140/84
[2020-04-09 16:10] VITALS: BP 142/98
[2020-04-09] MEDS: CLONIDINE 0.1MG TABLET PO PRN (16:58)
[2020-04-09 17:22] VITALS: BP 140/88
== END 2020-04-09 19:05 | disposition home or self-care (01) | DRG 710 ==
LOC: ER 10:31 → MICUSO 11:42 → EDBEDREQ 11:45 → EDBEDREQSVC 11:45 → 6WST 04-04 08:54
PROVIDERS: ADMIT Internal Medicine; ATTEND Internal Medicine
PROC: 0QBR0ZZ Excision of Left Toe Phalanx, Open Approach (ICD-10-PCS; principal; 2020-04-03)
PROC: 05HY33Z Insertion of Infusion Device into Upper Vein, Percutaneous Approach (ICD-10-PCS; 2020-04-06)
PROC: B54MZZA Ultrasonography of Right Upper Extremity Veins, Guidance (ICD-10-PCS; 2020-04-06)
DX: A41.9 Sepsis, unspecified organism (principal); E10.69 Type 1 diabetes mellitus with other specified complication; E10.621 Type 1 diabetes mellitus with foot ulcer; L03.116 Cellulitis of left lower limb; L97.529 Non-pressure chronic ulcer of other part of left foot with unspecified severity; D64.9 Anemia, unspecified; E66.9 Obesity, unspecified; E87.1 Hypo-osmolality and hyponatremia; I83.90 Asymptomatic varicose veins of unspecified lower extremity; M86.8X7 Other osteomyelitis, ankle and foot; M21.069 Valgus deformity, not elsewhere classified, unspecified knee; I10 Essential (primary) hypertension; J45.909 Unspecified asthma, uncomplicated; K59.00 Constipation, unspecified; Z20.822 Contact with and (suspected) exposure to COVID-19; R56.9 Unspecified convulsions; Z79.899 Other long term (current) drug therapy; Z79.4 Long term (current) use of insulin; Z91.19 Patient's noncompliance with other medical treatment and regimen; Z68.42 Body mass index [BMI] 45.0-49.9, adult; E44.0 Moderate protein-calorie malnutrition
CPT/HCPCS: 36415; 71045; 73630; 73701; 76937; 80048; 80053; 80061; 80202; 81003; 82550; 82553; 82962; 83605; 84145; 84484; 85025; 86850; 86900; 87070; 87426; 93005; 93970; 93971; 95816; 96365; 97116; 97162; 99285; C1725; J0360; J0690; J1200; J1650; J1815; J2060; J2270; J2405; J2543; J2765; J3370; J3490; J7030; J7060; Q9967

== ENCOUNTER 2020-04-12 13:28 | Emergency (ER) | payer MEDICAID, OTHER ==
[~2020-04-12] VITALS: Ht 172.7 cm; Wt 150.0 kg
[~2020-04-12 13:28] MED LIST changes: -HYDR12.529 MT; +INSU100I24 SQ; +INSU100I38 SQ; -INSU100V3 SUBCUT; -METF-416 PO
[2020-04-12] MEDS ORDERED: SODIUM CHLORIDE 0.9% 1000ML BAG (SEPSIS BOLUS) IV ONE (14:00)
[2020-04-12 14:20] LABS: BG BASE EXCESS 3.5 mmol/L (-2.0-2.0); BG CARBOXYHEMOGLOBIN 0.3 % (0.5-1.5); BG DEOXYHEMOGLOBIN 3.6 % (0.0-5.0); BG FRACTION INSPIRED OXYGEN 21; BG HCO3 ACT 28.2 mmol/L (22.0-26.0); BG METHEMOGLOBIN 0.1 % (0.0-1.5); BG OXYGEN SATURATION 96.4 % (92.0-98.5); BG PCO2 43.3 mmHg (35.0-45.0); BG PH 7.431 (7.350-7.450); BG PO2 89.6 mmHg (75.0-100.0); BG SAMPLE SITE LEFT RADIAL; BG TOTAL HEMOGLOBIN 10.4 g/dL (12.0-18.0); BG VENT MODE ROOM AIR
[2020-04-12 14:36] LABS: BASOPHILS % 0.5 % (0.0-2.0); EOSINOPHILS % 0.1 % (0.0-5.0); HEMATOCRIT. 30.3 % (36.0-48.0); HEMOGLOBIN. 9.7 g/dL (12.0-16.0); LYMPHOCYTES % 14.4 % (20.0-50.0); MEAN CORPUSCULAR HEMOGLOBIN 22.5 pg (28.0-32.0); MEAN CORPUSCULAR VOLUME 70.6 fL (81.0-99.0); MEAN PLATELET VOLUME 8.7 fl (7.4-10.4); MONOCYTES % 5.3 % (2.0-8.0); NEUTROPHILS % 79.7 % (40.0-76.0); PLATELET 243 x1000/uL (130-400); RED BLOOD CELL COUNT 4.29 mill/uL (4.2-5.4); RED CELL DISTRIBUTION WIDTH 15.2 % (11.6-14.6)
[2020-04-12 14:43] LABS: CHLORIDE 102 mEq/L (98-107); PROTHROMBIN TIME 10.6 sec (9.6-11.0)
[2020-04-12 14:45] LABS: HCG SCREEN NEGATIVE
[2020-04-12 14:50] LABS: ETHANOL BLOOD < 10 mg/dL
[2020-04-12 15:00] VITALS: BP 201/100
[2020-04-12] MEDS ORDERED: DIPHENHYDRAMINE 50MG/ML VIAL IV NR (15:00)
[2020-04-12] MEDS ORDERED: FAMOTIDINE 20MG/2ML VIAL IV NR (15:00)
[2020-04-12] MEDS ORDERED: KETOROLAC 15MG/ML VIAL IV NR (15:00)
[2020-04-12] MEDS ORDERED: METOCLOPRAMIDE HCL 10MG/2ML VIAL IV NR ×2 (15:00→15:45)
[2020-04-12] MEDS ORDERED: PROCHLORPERAZINE 10MG/2ML VIAL IV ONE (16:15)
[2020-04-12] MEDS ORDERED: VISCOUS LIDOCAINE 2% 15 ML UDC PO STA (17:33)
[2020-04-12] MEDS ORDERED: MAGNESIUM/ALUMINUM HYDROXIDE/SIMETHICONE 30ML UDC PO STA (17:33)
[2020-04-12 17:35] LABS: CLARITY URINE CLEAR (CLEAR); COLOR URINE YELLOW (YELLOW); KETONES URINE NEGATIVE (NEGATIVE); LEUKOCYTE ESTERASE URINE NEGATIVE (NEGATIVE); NITRITE URINE NEGATIVE (NEGATIVE); OCCULT BLOOD URINE 2+ (NEGATIVE); PH URINE 7.5 (4.5-8.0); PROTEIN URINE 4+ (NEGATIVE); SPECIFIC GRAVITY URINE 1.019 (1.005-1.030); UROBILINOGEN URINE 0.2 E.U./dL (0.2-1.0)
[2020-04-12 17:44] LABS: PHENCYCLIDINE URINE SCREEN NEGATIVE (NEGATIVE)
[2020-04-12 17:45] LABS: *AMPHETAMINES SCREEN URINE NEGATIVE (NEGATIVE); *BARBITURATES SCREEN URINE NEGATIVE (NEGATIVE); *BENZODIAZEPINES SCREEN URINE NEGATIVE (NEGATIVE); *COCAINE SCREEN URINE NEGATIVE (NEGATIVE); CANNABINOID URINE SCREEN NEGATIVE (NEGATIVE); METHADONE URINE SCREEN NEGATIVE (NEGATIVE); OPIATES URINE SCREEN NEGATIVE (NEGATIVE)
== END 2020-04-12 19:33 | disposition home or self-care (01) ==
LOC: ER 13:28 → EDBEDREQTM 18:04 → EDBEDREQSVC 18:04 → EDBEDREQ 18:04 → ER 19:33 → CANBEDREQ 21:18
DX: E11.43 Type 2 diabetes mellitus with diabetic autonomic (poly)neuropathy (principal); K31.84 Gastroparesis; E11.65 Type 2 diabetes mellitus with hyperglycemia; J45.909 Unspecified asthma, uncomplicated; I10 Essential (primary) hypertension; Z79.4 Long term (current) use of insulin; Z79.899 Other long term (current) drug therapy; Z88.8 Allergy status to other drugs, medicaments and biological substances; Z98.890 Other specified postprocedural states
CPT/HCPCS: 36415; 36600; 80053; 80305; 80320; 81003; 81025; 82375; 82805; 82962; 83605; 83690; 84145; 84703; 85025; 85610; 87040; 87086; 93005; 96361; 96374; 96375; 99284; J0780; J1200; J1885; J2765; J3490; J7030; G0480

== ENCOUNTER 2020-04-16 11:18 | Emergency (ER) | payer MEDICAID, OTHER ==
[~2020-04-16] VITALS: Ht 160 cm; Wt 69.0 kg
[2020-04-16] MEDS ORDERED: ONDANSETRON HCL 4MG/2ML INJ IV STA (12:11)
[2020-04-16] MEDS ORDERED: MORPHINE SULFATE 4 MG/ML CPJ (NOT FOR IM USE) IV STA (12:11)
[2020-04-16] MEDS ORDERED: SODIUM CHLORIDE 0.9% 1,000 ML IV ONE (12:15)
[2020-04-16] MEDS ORDERED: FAMOTIDINE 20MG/2ML VIAL IV ONE (12:15)
[2020-04-16 12:28] LABS: BASOPHILS % 0.8 % (0.0-2.0); EOSINOPHILS % 0.5 % (0.0-5.0); HEMATOCRIT. 28.7 % (36.0-48.0); HEMOGLOBIN. 9.1 g/dL (12.0-16.0); LYMPHOCYTES % 18.5 % (20.0-50.0); MEAN CORPUSCULAR HEMOGLOBIN 22.8 pg (28.0-32.0); MEAN CORPUSCULAR VOLUME 71.8 fL (81.0-99.0); MEAN PLATELET VOLUME 8.9 fl (7.4-10.4); MONOCYTES % 9.8 % (2.0-8.0); NEUTROPHILS % 70.4 % (40.0-76.0); PLATELET 255 x1000/uL (130-400); RED CELL DISTRIBUTION WIDTH 15.3 % (11.6-14.6)
[2020-04-16 12:30] LABS: CHLORIDE 103 mEq/L (98-107)
[2020-04-16 12:35] LABS: HCG SCREEN NEGATIVE
[2020-04-16 12:37] LABS: PROTHROMBIN TIME 10.5 sec (9.6-11.0)
[2020-04-16] MEDS ORDERED: MAGNESIUM/ALUMINUM HYDROXIDE/SIMETHICONE 30ML UDC PO STA (14:08)
[2020-04-16] MEDS ORDERED: VISCOUS LIDOCAINE 2% 15 ML UDC PO STA (14:08)
[2020-04-16 14:11] LABS: CLARITY URINE CLEAR (CLEAR); COLOR URINE YELLOW (YELLOW); KETONES URINE NEGATIVE (NEGATIVE); LEUKOCYTE ESTERASE URINE NEGATIVE (NEGATIVE); NITRITE URINE NEGATIVE (NEGATIVE); OCCULT BLOOD URINE 2+ (NEGATIVE); PH URINE 7.5 (4.5-8.0); PROTEIN URINE 4+ (NEGATIVE); SPECIFIC GRAVITY URINE 1.016 (1.005-1.030); UROBILINOGEN URINE 0.2 E.U./dL (0.2-1.0)
[2020-04-16] MEDS ORDERED: CLONIDINE 0.2MG TABLET PO ONE (14:15)
[2020-04-16] MEDS ORDERED: MAG-55 MT (15:01)
[2020-04-16] MEDS ORDERED: FAMO20TA8 MT (15:01)
[2020-04-16 15:16] VITALS: BP 166/114
== END 2020-04-16 15:34 | disposition home or self-care (01) ==
LOC: ER 11:59 → CANBEDREQ 15:51
DX: K29.00 Acute gastritis without bleeding (principal); D50.9 Iron deficiency anemia, unspecified; I10 Essential (primary) hypertension; E11.9 Type 2 diabetes mellitus without complications; J45.909 Unspecified asthma, uncomplicated; Z79.4 Long term (current) use of insulin; Z91.018 Allergy to other foods
CPT/HCPCS: 36415; 70450; 71045; 74176; 80053; 81003; 83605; 83690; 84145; 84484; 84703; 85025; 85610; 87040; 87086; 93005; 96361; 96374; 96375; 99285; J2270; J2405; J3490; J7030; Z7610

== ENCOUNTER 2020-04-18 18:38 | Emergency (ER) | payer MEDICAID, OTHER ==
[~2020-04-18] VITALS: Ht 162.6 cm; Wt 106.0 kg
[~2020-04-18 18:38] MED LIST changes: +FAMO20TA8 MT; +MAG-55 MT
[2020-04-18] MEDS ORDERED: ONDANSETRON HCL 4MG/2ML INJ IV STA (19:16)
[2020-04-18] MEDS ORDERED: MAGNESIUM/ALUMINUM HYDROXIDE/SIMETHICONE 30ML UDC PO STA (19:16)
[2020-04-18] MEDS ORDERED: MORPHINE SULFATE 4 MG/ML CPJ (NOT FOR IM USE) IV STA (19:16)
[2020-04-18] MEDS ORDERED: FAMOTIDINE 20MG/2ML VIAL IV STA (19:16)
[2020-04-18] MEDS ORDERED: VISCOUS LIDOCAINE 2% 15 ML UDC PO STA (19:16)
[2020-04-18] MEDS ORDERED: SODIUM CHLORIDE 0.9% 1,000 ML IV ONE (19:30)
[2020-04-18] MEDS ORDERED: CLONIDINE 0.2MG TABLET PO ONE (19:30)
[2020-04-18 19:45] LABS: BASOPHILS % 0.7 % (0.0-2.0); EOSINOPHILS % 0.7 % (0.0-5.0); HEMATOCRIT. 29.4 % (36.0-48.0); HEMOGLOBIN. 9.5 g/dL (12.0-16.0); LYMPHOCYTES % 23.8 % (20.0-50.0); MEAN CORPUSCULAR HEMOGLOBIN 22.9 pg (28.0-32.0); MEAN CORPUSCULAR VOLUME 70.8 fL (81.0-99.0); MEAN PLATELET VOLUME 8.7 fl (7.4-10.4); MONOCYTES % 10.8 % (2.0-8.0); PLATELET 246 x1000/uL (130-400); RED BLOOD CELL COUNT 4.15 mill/uL (4.2-5.4); RED CELL DISTRIBUTION WIDTH 15.4 % (11.6-14.6)
[2020-04-18 19:47] LABS: CHLORIDE 103 mEq/L (98-107)
[2020-04-18 19:51] LABS: HCG SCREEN NEGATIVE
[2020-04-19] MEDS ORDERED: LISINOPRIL 20MG TABLET PO SCH (03:30)
[2020-04-19] MEDS ORDERED: AMLODIPINE 10MG TABLET PO SCH (03:30)
[2020-04-19 06:00] VITALS: BP 160/98
[2020-04-19 06:25] LABS: CLARITY URINE CLEAR (CLEAR); COLOR URINE YELLOW (YELLOW); KETONES URINE NEGATIVE (NEGATIVE); LEUKOCYTE ESTERASE URINE NEGATIVE (NEGATIVE); NITRITE URINE NEGATIVE (NEGATIVE); OCCULT BLOOD URINE 1+ (NEGATIVE); PROTEIN URINE 3+ (NEGATIVE); SPECIFIC GRAVITY URINE 1.011 (1.005-1.030); UROBILINOGEN URINE 0.2 E.U./dL (0.2-1.0)
[2020-04-19] MEDS ORDERED: OMEPRAZOLE 20MG CAPSULE EXTENDED RELEASE PO SCH (07:50)
[2020-04-19] MEDS ORDERED: CLONIDINE 0.1MG TABLET PO PRN (08:00)
[2020-04-19] MEDS ORDERED: ONDANSETRON HCL 4MG/2ML INJ IV PRN (08:00)
[2020-04-19] MEDS ORDERED: DEXTROSE 50% WATER 50ML SYRINGE IV PRN (08:00)
[2020-04-19] MEDS ORDERED: ACETAMINOPHEN 325MG TABLET PO PRN (08:00)
[2020-04-19] MEDS ORDERED: INSULIN LISPRO 100 UNITS/ML SUBCUT SCH (08:20)
[2020-04-19] MEDS ORDERED: MEROPENEM 1,000 MG in SODIUM CHLORIDE 0.9% 100 ML IV SCH (09:00)
[2020-04-19] MEDS ORDERED: BLOOD SUGAR DIAGNOSTIC STRIP TEST SCH (09:00)
[2020-04-19] MEDS ORDERED: METOCLOPRAMIDE HCL 10MG/2ML VIAL IV SCH (12:00)
== END 2020-04-19 08:25 | disposition left against medical advice (07) ==
LOC: ER 18:38 → EDBEDREQ 22:56 → ENRESERV 04-19 07:35 → CANRESERV 04-19 07:35 → CANBEDREQ 04-19 08:03 → ER 04-19 08:25
DX: K29.00 Acute gastritis without bleeding (principal); I10 Essential (primary) hypertension; E11.9 Type 2 diabetes mellitus without complications; J45.909 Unspecified asthma, uncomplicated; Z91.018 Allergy to other foods
CPT/HCPCS: 36415; 80053; 81003; 83690; 84703; 85025; 93005; 96374; 96375; 99285; J2270; J2405; J3490; J7030; J2185; J7050

== ENCOUNTER 2020-04-22 05:59 | Emergency (ER) | payer MEDICAID ==
[~2020-04-22] VITALS: Ht 162.6 cm; Wt 100.0 kg
[2020-04-22] MEDS ORDERED: ONDANSETRON HCL 4MG/2ML INJ IV STA (06:18)
[2020-04-22] MEDS ORDERED: FAMOTIDINE 20MG/2ML VIAL IV STA (06:18)
[2020-04-22] MEDS ORDERED: SODIUM CHLORIDE 0.9% 1,000 ML IV ONE (06:30)
[2020-04-22] MEDS ORDERED: MORPHINE SULFATE 4 MG/ML CPJ (NOT FOR IM USE) IV ONE (06:45)
[2020-04-22] MEDS ORDERED: LABETALOL 5MG/ML SYR 20 MG/4 ML SYRINGE IV ONE (07:00)
[2020-04-22 08:13] LABS: BASOPHILS % 0.5 % (0.0-2.0); EOSINOPHILS % 0.5 % (0.0-5.0); HEMATOCRIT. 31.3 % (36.0-48.0); HEMOGLOBIN. 9.9 g/dL (12.0-16.0); LYMPHOCYTES % 22.8 % (20.0-50.0); MEAN CORPUSCULAR HEMOGLOBIN 22.5 pg (28.0-32.0); MEAN CORPUSCULAR VOLUME 71.1 fL (81.0-99.0); MEAN PLATELET VOLUME 8.8 fl (7.4-10.4); MONOCYTES % 7.3 % (2.0-8.0); NEUTROPHILS % 68.9 % (40.0-76.0); PLATELET 234 x1000/uL (130-400); RED BLOOD CELL COUNT 4.41 mill/uL (4.2-5.4); RED CELL DISTRIBUTION WIDTH 14.8 % (11.6-14.6)
[2020-04-22 08:20] LABS: CHLORIDE 98 mEq/L (98-107)
[2020-04-22 08:23] LABS: PROTHROMBIN TIME 10.6 sec (9.6-11.0)
[2020-04-22 08:24] LABS: ETHANOL BLOOD < 10 mg/dL; HCG SCREEN NEGATIVE
[2020-04-22 09:30] VITALS: BP 189/99
[2020-04-22 09:39] LABS: CLARITY URINE CLEAR (CLEAR); COLOR URINE YELLOW (YELLOW); KETONES URINE NEGATIVE (NEGATIVE); LEUKOCYTE ESTERASE URINE NEGATIVE (NEGATIVE); NITRITE URINE NEGATIVE (NEGATIVE); OCCULT BLOOD URINE 1+ (NEGATIVE); PROTEIN URINE 4+ (NEGATIVE); SPECIFIC GRAVITY URINE 1.009 (1.005-1.030); UROBILINOGEN URINE 0.2 E.U./dL (0.2-1.0)
[2020-04-22 09:58] LABS: *AMPHETAMINES SCREEN URINE NEGATIVE (NEGATIVE); *BARBITURATES SCREEN URINE NEGATIVE (NEGATIVE); *BENZODIAZEPINES SCREEN URINE NEGATIVE (NEGATIVE)
[2020-04-22 09:59] LABS: *COCAINE SCREEN URINE NEGATIVE (NEGATIVE); CANNABINOID URINE SCREEN NEGATIVE (NEGATIVE); METHADONE URINE SCREEN NEGATIVE (NEGATIVE); PHENCYCLIDINE URINE SCREEN NEGATIVE (NEGATIVE)
[2020-04-22 10:33] LABS: OPIATES URINE SCREEN PRESUMTIVE POSITIVE (NEGATIVE)
[2020-04-22] MEDS ORDERED: OMEP20CA14 MT (10:46)
== END 2020-04-22 11:00 | disposition home or self-care (01) ==
LOC: ER 05:59
DX: G89.29 Other chronic pain (principal); R10.13 Epigastric pain; I16.1 Hypertensive emergency; I10 Essential (primary) hypertension; J45.909 Unspecified asthma, uncomplicated; E11.9 Type 2 diabetes mellitus without complications; Z79.899 Other long term (current) drug therapy; Z91.018 Allergy to other foods
CPT/HCPCS: 36415; 74176; 80053; 80305; 80320; 81003; 82962; 83690; 84703; 85025; 85610; 93005; 96361; 96374; 96375; 99285; J2270; J2405; J3490; J7030; G0480

== ENCOUNTER 2020-05-11 11:04 | Emergency (ER) | payer MEDICAID ==
[~2020-05-11] VITALS: Ht 160 cm; Wt 118.0 kg
[~2020-05-11 11:04] MED LIST changes: +OMEP20CA14 MT
[2020-05-11 11:54] LABS: BASOPHILS % 0.6 % (0.0-2.0); EOSINOPHILS % 1.8 % (0.0-5.0); HEMATOCRIT. 27.9 % (36.0-48.0); MEAN CORPUSCULAR HEMOGLOBIN 22.8 pg (28.0-32.0); MEAN CORPUSCULAR VOLUME 70.8 fL (81.0-99.0); MEAN PLATELET VOLUME 8.7 fl (7.4-10.4); MONOCYTES % 9.7 % (2.0-8.0); NEUTROPHILS % 57.9 % (40.0-76.0); PLATELET 199 x1000/uL (130-400); RED BLOOD CELL COUNT 3.95 mill/uL (4.2-5.4); RED CELL DISTRIBUTION WIDTH 15.2 % (11.6-14.6)
[2020-05-11 12:07] LABS: CHLORIDE 107 mEq/L (98-107)
[2020-05-11] MEDS ORDERED: HYDROCHLOROTHIAZIDE 25MG TABLET PO ONE (12:15)
[2020-05-11 12:23] LABS: INR 0.9
[2020-05-11 12:28] LABS: HCG SCREEN NEGATIVE
[2020-05-11 13:37] LABS: CLARITY URINE CLEAR (CLEAR); COLOR URINE YELLOW (YELLOW); KETONES URINE NEGATIVE (NEGATIVE); LEUKOCYTE ESTERASE URINE NEGATIVE (NEGATIVE); NITRITE URINE NEGATIVE (NEGATIVE); OCCULT BLOOD URINE 2+ (NEGATIVE); PROTEIN URINE 3+ (NEGATIVE); SPECIFIC GRAVITY URINE 1.013 (1.005-1.030); UROBILINOGEN URINE 0.2 E.U./dL (0.2-1.0)
[2020-05-11 15:00] VITALS: BP 165/115
== END 2020-05-11 15:00 | disposition home or self-care (01) ==
LOC: ER 11:04
DX: T85.9XXA Unspecified complication of internal prosthetic device, implant and graft, initial encounter (principal); I10 Essential (primary) hypertension; E11.9 Type 2 diabetes mellitus without complications; J45.909 Unspecified asthma, uncomplicated; Z79.4 Long term (current) use of insulin; Z91.018 Allergy to other foods; Y83.8 Other surgical procedures as the cause of abnormal reaction of the patient, or of later complication, without mention of misadventure at the time of the procedure; Y92.018 Other place in single-family (private) house as the place of occurrence of the external cause
CPT/HCPCS: 36415; 80053; 81003; 84703; 85025; 93971; 99284

== ENCOUNTER 2020-05-13 22:46 | Emergency (ER) | payer MEDICAID, OTHER ==
[~2020-05-13] VITALS: Ht 157.5 cm; Wt 81.0 kg
[2020-05-13] MEDS ORDERED: SODIUM CHLORIDE 0.9% 1,000 ML IV ONE (23:15)
[2020-05-13] MEDS ORDERED: ONDANSETRON HCL 4MG/2ML INJ IV ONE (23:15)
[2020-05-13 23:39] LABS: BASOPHILS % 0.5 % (0.0-2.0); EOSINOPHILS % 0.5 % (0.0-5.0); HEMATOCRIT. 30.6 % (36.0-48.0); HEMOGLOBIN. 9.8 g/dL (12.0-16.0); LYMPHOCYTES % 22.9 % (20.0-50.0); MEAN CORPUSCULAR HEMOGLOBIN 22.3 pg (28.0-32.0); MEAN CORPUSCULAR VOLUME 69.9 fL (81.0-99.0); MEAN PLATELET VOLUME 8.9 fl (7.4-10.4); MONOCYTES % 8.2 % (2.0-8.0); NEUTROPHILS % 67.9 % (40.0-76.0); PLATELET 229 x1000/uL (130-400); RED BLOOD CELL COUNT 4.38 mill/uL (4.2-5.4); RED CELL DISTRIBUTION WIDTH 15.6 % (11.6-14.6)
[2020-05-13 23:45] LABS: PROTHROMBIN TIME 10.3 sec (9.6-11.0)
[2020-05-13 23:51] LABS: CHLORIDE 104 mEq/L (98-107)
[2020-05-14] LABS: HCG SCREEN NEGATIVE
[2020-05-14 00:20] LABS: CLARITY URINE CLEAR (CLEAR); COLOR URINE YELLOW (YELLOW); KETONES URINE NEGATIVE (NEGATIVE); LEUKOCYTE ESTERASE URINE NEGATIVE (NEGATIVE); NITRITE URINE NEGATIVE (NEGATIVE); OCCULT BLOOD URINE 2+ (NEGATIVE); PH URINE 7.5 (4.5-8.0); PROTEIN URINE 4+ (NEGATIVE); SPECIFIC GRAVITY URINE 1.014 (1.005-1.030); UROBILINOGEN URINE 0.2 E.U./dL (0.2-1.0)
[2020-05-14 00:30] LABS: *AMPHETAMINES SCREEN URINE NEGATIVE (NEGATIVE); *BARBITURATES SCREEN URINE NEGATIVE (NEGATIVE); *COCAINE SCREEN URINE NEGATIVE (NEGATIVE)
[2020-05-14] MEDS ORDERED: METOCLOPRAMIDE HCL 10MG/2ML VIAL IV ONE (00:30)
[2020-05-14 00:31] LABS: *BENZODIAZEPINES SCREEN URINE NEGATIVE (NEGATIVE); CANNABINOID URINE SCREEN NEGATIVE (NEGATIVE); METHADONE URINE SCREEN NEGATIVE (NEGATIVE); OPIATES URINE SCREEN NEGATIVE (NEGATIVE); PHENCYCLIDINE URINE SCREEN NEGATIVE (NEGATIVE)
[2020-05-14 01:14] LABS: PLATELET ESTIMATE NORMAL
[2020-05-14] MEDS ORDERED: MORPHINE SULFATE 4 MG/ML CPJ (NOT FOR IM USE) IV ONE ×2 (01:15→04:15)
[2020-05-14] MEDS ORDERED: IOHEXOL-300 100 ML BOTTLE ONE (01:42)
[2020-05-14 08:10] VITALS: BP 150/80
== END 2020-05-14 10:02 | disposition short-term general hospital (02) ==
LOC: ER 22:46
DX: R10.84 Generalized abdominal pain (principal); J45.909 Unspecified asthma, uncomplicated; E11.9 Type 2 diabetes mellitus without complications; I10 Essential (primary) hypertension; Z79.4 Long term (current) use of insulin; Z79.899 Other long term (current) drug therapy
CPT/HCPCS: 36415; 74177; 80053; 80305; 81003; 81025; 83605; 83690; 84703; 85025; 85610; 93005; 96374; 96375; 96376; 99285; J2270; J2405; J2765; J7030; Q9967